=== PATIENT | male | born 1955 | race Caucasian/White ===

== ENCOUNTER 2017-02-05 08:08 | Inpatient (IN) ==
[2017-02-05 08:33] LABS: Bilirubin,Urine Negative (Negative); Blood,Urine Trace (Negative); Clarity,Urine Clear (Clear); Color,Urine Yellow (Yellow); Glucose,Urine (UA) Normal (Normal); Ketones,Urine Negative (Negative); Leukocyte Esterase,Urine Negative (Negative); Nitrite,Urine Negative (Negative); Protein,Urine Negative (Neg-Trace); Specific Gravity,Urine 1.009 (1.010-1.025); Urobilinogen,Urine Normal (Normal)
[2017-02-05 08:35] LABS: Bacteria,Urine None Seen per hpf (None-Few); Hyaline Casts,Urine None Seen per lpf (None-Few); RBC,Urine 0-3 per hpf (0-3); Squamous Epithelial Cell,Urine None Seen per lpf (None-Few); WBC,Urine 0-3 per hpf (0-3)
[2017-02-05 08:54] LABS: Amphetamine Screen,Urine Negative ng/mL (Cutoff=1000); Barbiturate Screen,Urine Negative ng/mL (Cutoff=200); Benzodiazepines Screen,Urine Negative ng/mL (Cutoff=200); Cannabinoid Screen,Urine Negative ng/mL (Cutoff = 50); Cocaine Screen,Urine Negative ng/mL (Cutoff= 300); Opiate Screen,Urine Positive ng/mL (Cutoff=300); Phencyclidine Screen,Urine Negative ng/mL (Cutoff=25)
[2017-02-05] MEDS ORDERED: 0.9 % Sodium Chloride 1,000 ML IVC ONE (09:08)
[2017-02-05 09:33] LABS: Basophils % 0.2 %; Eosinophils % 0.2 %; Hematocrit 37.9 % (37.5-50.1); Hemoglobin 12.1 g/dL (12.9-16.9); Immature Granulocytes % 0.4 % (0-4); Lymphocytes # 0.7 K/mcL (0.6-4.6); Lymphocytes % 4.4 %; Mean Corpuscular HGB Conc 31.9 g/dL (31.6-35.5); Mean Corpuscular Volume 103.3 fL (83.0-100.0); Mean Platelet Volume 12.8 fL (9.4-12.4); Monocytes # 1.1 K/mcL (0.0-1.3); Monocytes % 6.5 %; Neutrophils # 14.4 K/mcL (1.6-8.9); Platelet Count 111 K/mcL (140-400); Red Blood Count 3.67 M/mcL (4.19-5.50); Segmented Neutrophils % 88.3 %
[2017-02-05 09:45] LABS: Bilirubin,Direct 0.3 mg/dL (0.0-0.5); Bilirubin,Total 0.5 mg/dL (0.2-1.2); Calcium 9.2 mg/dL (8.6-10.8); Potassium 4.5 mEq/L (3.5-4.5)
[2017-02-05 09:46] LABS: Albumin 3.3 g/dL (3.5-5.0); Albumin/Globulin Ratio 0.8 (1.1-2.2); Bilirubin,Indirect 0.2 mg/dL (0.0-1.2); Globulin 3.9 g/dL (2.4-3.5); Total Protein 7.2 g/dL (6.0-8.3)
[2017-02-05 10:26] LABS: Prothrombin Time 22.2 Seconds (9.4-12.1)
[2017-02-05 10:29] LABS: Activated Partial Thrombo Time 37.5 Seconds (26.0-36.0)
[2017-02-05] MEDS ORDERED: Vancomycin 1,000 MG in D5% in Water 250 ML IVPB ONE (10:42)
[2017-02-05] MEDS ORDERED: D5 IVPB SCH (10:56)
[2017-02-05] MEDS ORDERED: SULFAMETHOXAZOLE IVPB SCH (10:56)
[2017-02-05] MEDS ORDERED: WATER IVPB SCH (10:56)
[2017-02-05] MEDS ORDERED: TRIMETH IVPB SCH (10:56)
--- NOTE | 2017-02-05 10:56 | Emergency Department Note ---
Disposition Clinical Impression: Cellulitis, neck Disposition: Admitted As Inpatient Condition: Good Referrals: Ethan Ivan DO [Primary Care Provider] - Forms: ED Satisfaction Letter Time of Disposition: 11:19 Altered Mental Status HPI - General Chief Complaint: ED Altered Mental Status Stated Complaint: AMS, Weakness, Lump Time Seen by Provider: 02/05/17 09:06 Source: patient Limitations: no limitations Nursing Notes Reviewed: Yes Vital Signs Reviewed: Yes - History of Present Illness HPI Narrative: 61 year old male presents to the eD with complaints of right lateral neck pain and redness that devloped in 24 hours. He states the pain from his neck now radiates into his right arm and has been nauseated with a fever of 100.1F at home. PAtinet state denies a history of MRSA and states that he feeels increased confusion now. Denies vomitting, chest pain, shortness of breath, or abdomnal pain, or uti symptoms or an neuro defecits. PAtinet states that this is afirst time occurance and the the neck is very tender to touch. - Related Data Home Medications Medication Instructions Recorded Confirmed Acetaminophen with Codeine 1 tab PO Q8H 02/05/17 02/05/17 [Acetaminophen-Cod #4 Tablet] Amitriptyline HCl [Amitriptyline 150 mg PO BID 02/05/17 02/05/17 HCl] Furosemide [Lasix] 40 mg PO DAILY 02/05/17 02/05/17 Quetiapine Fumarate [Seroquel] 50 mg PO BID 02/05/17 02/05/17 Tizanidine HCl [Tizanidine HCl] 4 mg PO TID PRN 02/05/17 02/05/17 Warfarin [Coumadin] 5 mg PO DAILY 02/05/17 02/05/17 lamoTRIgine [Lamictal] 100 mg PO DAILY 02/05/17 02/05/17 Allergies Allergy/AdvReac Type Severity Reaction Status Date / Time propoxyphene [From Darvon] Allergy Hives Verified 02/05/17 08:21 Constitutional: Reports: fever, chills, weakness. Denies: weight change Eyes: Denies: eye pain, eye discharge, vision change ENT ED: Denies: ear pain, throat pain, dental pain, hearing loss, epistaxis, congestion, dysphagia Cardiovascular: Denies: chest pain, palpitations, dyspnea on exertion, edema, syncope Respiratory: Denies: cough, dyspnea, wheezes, hemoptysis, stridor Gastrointestinal: Denies: abdominal pain, nausea, vomiting, diarrhea, constipation, hematemesis, melena, hematochezia Genitourinary: Denies: urgency, dysuria, frequency, hematuria Musculoskeletal: Reports: neck pain. Denies: back pain, arthralgia, myalgia Integumentary: Reports: rash. Denies: abrasion, lesions Neurological: Denies: headache, weakness, numbness, paresthesias, confusion, abnormal gait, vertigo Psychiatric: Denies: anxiety, depression, suicidal thoughts, homicidal thoughts , auditory hallucinations, visual hallucinations Endocrine: Denies: fatigue Hematological/Lymphatic: Denies: easy bleeding, easy bruising Allergic/Immunologic: Denies: facial swelling, urticaria Past Medical History - Past Medical History Medical history: Reports: COPD, renal disease, valvular heart disease Psychiatric history: Reports: anxiety, bipolar, depression - Social History Smoking Status: Current every day smoker Smokeless Tobacco Status: No Alcohol use: Reports: none Drug use: Reports: none Physical Exam - General Limitations: no limitations General appearance: alert, in no apparent distress - Head Head exam: atraumatic, normocephalic, normal inspection - Eye Eye exam: Present: normal appearance, PERRL, EOMI - Expanded Eye Exam Pupils: Left: reactive - ENT ENT exam: normal exam, normal oropharynx, mucous membranes moist - Expanded ENT Exam External ear exam: Present: normal external inspection Mouth exam: Present: normal external inspection Teeth exam: Present: normal inspection Throat exam: Present: normal inspection - Neck Neck exam: Present: normal inspection, full ROM, trachea midline, tenderness ( right anterior lateral neck with erythematous changes, swollen lymph node or indurated area at the corner of the righ jaw) - Chest Chest inspection: Present: normal inspection, symmetric chest wall rise - Respiratory Respiratory exam: Present: normal lung sounds bilaterally - Cardiovascular Cardiovascular exam: Present: regular rate, normal rhythm, normal heart sounds - Abdominal Exam Abdominal exam: Present: soft, Non-Tender. Absent: tenderness, distention, guarding, rebound, rigidity - Extremities Exam Extremities exam: Present: normal inspection, full ROM. Absent: tenderness, pedal edema - Expanded Upper Extremity Exam Shoulder exam: Present: normal inspection, full ROM Arm exam: Present: normal inspection, full ROM Elbow exam: Present: normal inspection, full ROM Forearm/Wrist exam: Present: normal inspection, full ROM Hand exam: Present: normal inspection, full ROM Vascular exam: Normal: capillary refill, radial pulse - Expanded Lower Extremity Exam Hip/Pelvis exam: Present: normal inspection, full ROM Upper leg exam: Present: normal inspection, full ROM Knee exam: Present: normal inspection, full ROM Lower leg exam: Present: normal inspection, full ROM Ankle exam: Present: normal inspection, full ROM Foot/toe exam: Present: normal inspection, full ROM Neurovascular/Tendon exam: Absent: motor deficit, sensory deficit, tendon deficit - Back Exam Back exam: Present: normal inspection, full ROM. Absent: tenderness - Neurological Exam Neurological exam: Present: alert, oriented X3 - Expanded Neurological Exam Patient oriented to: Present: person, place, time Coma Scale Eye Opening: Spontaneous Coma Scale Motor Response: Obeys Commands Coma Scale Verbal Response: Oriented Coma Scale Total: 15 - Psychiatric Psychiatric exam: Present: normal affect, normal mood - Skin Skin exam: Present: warm, dry, intact, normal color - Expanded Skin Exam 1 - right anterior lateral neck erythamtous changes with inudration vs swollen lymph node of right corner of jaw Course Course Narrative: we will do an altered mental status workup. My clicincal suspicion is that this is a cellutlisi of the neck. We will start IV vanco/bactrim and admit to medicine. - Reevaluation(s) Reevaluation #1: updated patient on results. and they are agrreable to admission Time: 11:19 - Consultations Consultation #1: discussed case with Dr. Heller and he accepts patinet for admission Time: 11:19 Vital Signs Temperature 99.1 F 02/05/17 08:17 Pulse Rate 82 02/05/17 08:17 Respiratory Rate 16 02/05/17 08:17 Blood Pressure 161/72 02/05/17 08:17 O2 Sat by Pulse Oximetry 96 02/05/17 08:17 Temperature 99.1 F 02/05/17 08:17 Pulse Rate 68 02/05/17 10:18 Respiratory Rate 18 02/05/17 10:18 Blood Pressure 110/91 02/05/17 10:18 O2 Sat by Pulse Oximetry 94 02/05/17 10:18 Oxygen Delivery Oxygen Delivery Room Air Altered Mental Status - Lab Data Result diagrams: 02/05/17 09:24 02/05/17 09:24 Lab Results 02/05/17 02/05/17 02/05/17 Range/Units 08:13 08:13 09:24 WBC 16.3 H (4.3-11.1) K/mcL RBC 3.67 L (4.19-5.50) M/mcL Hgb 12.1 L (12.9-16.9) g/dL Hct 37.9 (37.5-50.1) % MCV 103.3 H (83.0-100.0) fL MCH 33.0 (28.0-33.3) pg MCHC 31.9 (31.6-35.5) g/dL RDW 13.0 (11.5-14.5) % Plt Count 111 L (140-400) K/mcL MPV 12.8 H (9.4-12.4) fL Immature Gran % 0.4 (0-4) % Seg Neutrophils % 88.3 % Lymphocytes % 4.4 % Monocytes % 6.5 % Eosinophils % 0.2 % Basophils % 0.2 % Neutrophils # 14.4 H (1.6-8.9) K/mcL Lymphocytes # 0.7 (0.6-4.6) K/mcL Monocytes # 1.1 (0.0-1.3) K/mcL Eosinophils # 0.0 (0.0-0.6) K/mcL Basophils # 0.0 (0.0-0.2) K/mcL PT (9.4-12.1) Seconds INR APTT (26.0-36.0) Seconds Sodium (136-145) mEq/L Potassium (3.5-4.5) mEq/L Chloride (98-109) mEq/L Carbon Dioxide (19-29) mEq/L BUN (8-26) mg/dL Creatinine (0.72-1.25) mg/dL Est GFR ( Amer) (> 60) Est GFR (Non-Af Amer) (> 60) BUN/Creatinine Ratio (6-26) Glucose (70-99) mg/dL Calculated Osmolality (280-300) Lactic Acid (0.5-2.2) mmol/L Calcium (8.6-10.8) mg/dL Total Bilirubin (0.2-1.2) mg/dL Direct Bilirubin (0.0-0.5) mg/dL Indirect Bilirubin (0.0-1.2) mg/dL AST (5-34) Units/L ALT (0-55) Units/L Alkaline Phosphatase (38-126) Units/L Troponin I (0-0.03) ng/mL Serum Total Protein (6.0-8.3) g/dL Albumin (3.5-5.0) g/dL Globulin (2.4-3.5) g/dL Albumin/Globulin Ratio (1.1-2.2) Urine Color Yellow (Yellow) Urine Clarity Clear (Clear) Urine pH 7.0 (5.0-8.0) pH Units Ur Specific [place] 1.009 L (1.010-1.025) Urine Protein Negative (Neg-Trace) mg/dL Urine Glucose (UA) Normal (Normal) mg/dL Urine Ketones Negative (Negative) mg/dL Urine Blood Trace H (Negative) Urine Nitrite Negative (Negative) Urine Bilirubin Negative (Negative) Urine Urobilinogen Normal (Normal) mg/dL Ur Leukocyte Esterase Negative (Negative) Urine Microscopic RBC 0-3 (0-3) per hpf Urine Microscopic WBC 0-3 (0-3) per hpf Ur Squamous Epith Cells None Seen (None-Few) per lpf Urine Bacteria None Seen (None-Few) per hpf Hyaline Casts None Seen (None-Few) per lpf Ur Culture Indicated? NO (NO) Urine Opiates Screen Positive H (Fgezbm=833) ng/mL Ur Barbiturates Screen Negative (Jsguwi=559) ng/mL Ur Phencyclidine Scrn Negative (Cutoff=25) ng/mL Ur Amphetamines Screen Negative (Alsdsm=9906) ng/mL U Benzodiazepines Scrn Negative (Igizkd=000) ng/mL Urine Cocaine Screen Negative (Cutoff= 300) ng/mL U Marijuana (THC) Screen Negative (Cutoff = 50) ng/mL Ethyl Alcohol (0-10) mg/dL 09/13/17 09/13/17 09/13/17 Range/Units 09:24 09:24 10:08 WBC (4.3-11.1) K/mcL RBC (4.19-5.50) M/mcL Hgb (12.9-16.9) g/dL Hct (37.5-50.1) % MCV (83.0-100.0) fL MCH (28.0-33.3) pg MCHC (31.6-35.5) g/dL RDW (11.5-14.5) % Plt Count (140-400) K/mcL MPV (9.4-12.4) fL Immature Gran % (0-4) % Seg Neutrophils % % Lymphocytes % % Monocytes % % Eosinophils % % Basophils % % Neutrophils # (1.6-8.9) K/mcL Lymphocytes # (0.6-4.6) K/mcL Monocytes # (0.0-1.3) K/mcL Eosinophils # (0.0-0.6) K/mcL Basophils # (0.0-0.2) K/mcL PT 22.2 H (9.4-12.1) Seconds INR 2.0 APTT 37.5 H (26.0-36.0) Seconds Sodium 139 (136-145) mEq/L Potassium 4.5 (3.5-4.5) mEq/L Chloride 108 (98-109) mEq/L Carbon Dioxide 22 (19-29) mEq/L BUN 38 H (8-26) mg/dL Creatinine 3.66 H (0.72-1.25) mg/dL Est GFR ( Amer) 21 L (> 60) Est GFR (Non-Af Amer) 17 L (> 60) BUN/Creatinine Ratio 10 (6-26) Glucose 107 H (70-99) mg/dL Calculated Osmolality 298 (280-300) Lactic Acid (0.5-2.2) mmol/L Calcium 9.2 (8.6-10.8) mg/dL Total Bilirubin 0.5 (0.2-1.2) mg/dL Direct Bilirubin 0.3 (0.0-0.5) mg/dL Indirect Bilirubin 0.2 (0.0-1.2) mg/dL AST 16 (5-34) Units/L ALT 33 (0-55) Units/L Alkaline Phosphatase 173 H (38-126) Units/L Troponin I 0.04 H* (0-0.03) ng/mL Serum Total Protein 7.2 (6.0-8.3) g/dL Albumin 3.3 L (3.5-5.0) g/dL Globulin 3.9 H (2.4-3.5) g/dL Albumin/Globulin Ratio 0.8 L (1.1-2.2) Urine Color (Yellow) Urine Clarity (Clear) Urine pH (5.0-8.0) pH Units Ur Specific [place] (1.010-1.025) Urine Protein (Neg-Trace) mg/dL Urine Glucose (UA) (Normal) mg/dL Urine Ketones (Negative) mg/dL Urine Blood (Negative) Urine Nitrite (Negative) Urine Bilirubin (Negative) Urine Urobilinogen (Normal) mg/dL Ur Leukocyte Esterase (Negative) Urine Microscopic RBC (0-3) per hpf Urine Microscopic WBC (0-3) per hpf Ur Squamous Epith Cells (None-Few) per lpf Urine Bacteria (None-Few) per hpf Hyaline Casts (None-Few) per lpf Ur Culture Indicated? (NO) Urine Opiates Screen (Gagega=945) ng/mL Ur Barbiturates Screen (Dqxtrp=655) ng/mL Ur Phencyclidine Scrn (Cutoff=25) ng/mL Ur Amphetamines Screen (Kxtzlb=5252) ng/mL U Benzodiazepines Scrn (Jbjfzq=907) ng/mL Urine Cocaine Screen (Cutoff= 300) ng/mL U Marijuana (THC) Screen (Cutoff = 50) ng/mL Ethyl Alcohol (0-10) mg/dL 02/05/17 02/05/17 Range/Units 10:08 10:08 WBC (4.3-11.1) K/mcL RBC (4.19-5.50) M/mcL Hgb (12.9-16.9) g/dL Hct (37.5-50.1) % MCV (83.0-100.0) fL MCH (28.0-33.3) pg MCHC (31.6-35.5) g/dL RDW (11.5-14.5) % Plt Count (140-400) K/mcL MPV (9.4-12.4) fL Immature Gran % (0-4) % Seg Neutrophils % % Lymphocytes % % Monocytes % % Eosinophils % % Basophils % % Neutrophils # (1.6-8.9) K/mcL Lymphocytes # (0.6-4.6) K/mcL Monocytes # (0.0-1.3) K/mcL Eosinophils # (0.0-0.6) K/mcL Basophils # (0.0-0.2) K/mcL PT (9.4-12.1) Seconds INR APTT (26.0-36.0) Seconds Sodium (136-145) mEq/L Potassium (3.5-4.5) mEq/L Chloride (98-109) mEq/L Carbon Dioxide (19-29) mEq/L BUN (8-26) mg/dL Creatinine (0.72-1.25) mg/dL Est GFR ( Amer) (> 60) Est GFR (Non-Af Amer) (> 60) BUN/Creatinine Ratio (6-26) Glucose (70-99) mg/dL Calculated Osmolality (280-300) Lactic Acid 1.8 (0.5-2.2) mmol/L Calcium (8.6-10.8) mg/dL Total Bilirubin (0.2-1.2) mg/dL Direct Bilirubin (0.0-0.5) mg/dL Indirect Bilirubin (0.0-1.2) mg/dL AST (5-34) Units/L ALT (0-55) Units/L Alkaline Phosphatase (38-126) Units/L Troponin I (0-0.03) ng/mL Serum Total Protein (6.0-8.3) g/dL Albumin (3.5-5.0) g/dL Globulin (2.4-3.5) g/dL Albumin/Globulin Ratio (1.1-2.2) Urine Color (Yellow) Urine Clarity (Clear) Urine pH (5.0-8.0) pH Units Ur Specific [place] (1.010-1.025) Urine Protein (Neg-Trace) mg/dL Urine Glucose (UA) (Normal) mg/dL Urine Ketones (Negative) mg/dL Urine Blood (Negative) Urine Nitrite (Negative) Urine Bilirubin (Negative) Urine Urobilinogen (Normal) mg/dL Ur Leukocyte Esterase (Negative) Urine Microscopic RBC (0-3) per hpf Urine Microscopic WBC (0-3) per hpf Ur Squamous Epith Cells (None-Few) per lpf Urine Bacteria (None-Few) per hpf Hyaline Casts (None-Few) per lpf Ur Culture Indicated? (NO) Urine Opiates Screen (Klnitv=599) ng/mL Ur Barbiturates Screen (Uguuyy=460) ng/mL Ur Phencyclidine Scrn (Cutoff=25) ng/mL Ur Amphetamines Screen (Tgelhf=2664) ng/mL U Benzodiazepines Scrn (Auohqn=645) ng/mL Urine Cocaine Screen (Cutoff= 300) ng/mL U Marijuana (THC) Screen (Cutoff = 50) ng/mL Ethyl Alcohol < 10 (0-10) mg/dL - EKG Data EKG attestation: Yes I reviewed and interpreted this EKG. EKG results narrative: NSR with rate of 61. NO STEMI. normal intervals. no change from 08/28/07. LBBB 0828 TPA Checklist - LKW: 3-4.5 hrs Add. Warnings/Precautions Patient/family understanding: The patient/family members have been counseled and understood the risk, benefit , and alternatives of treatment.
[2017-02-05] MEDS ORDERED: 0.9 % Sodium Chloride 1,000 ML IVC SCH (13:15)
[2017-02-05] MEDS ORDERED: Naloxone 0.4 MG/ML INJ IVP PRN (13:15)
[2017-02-05] MEDS ORDERED: Albuterol 2.5 MG/3 ML NEBULIZER IH PRN (13:23)
--- NOTE | 2017-02-05 13:43 | Internal Med History&Physical ---
<Em Duran - Last Filed: 02/05/17 14:13> Date of Encounter: 02/05/17 Time of Encounter: 13:35 Assessment and Plan (1) Cellulitis, neck Current visit: Yes Status: Acute 1 the past 24 hours patient has been experiencing redness swelling enlarged lymph nodes tenderness to touch right side of neck. He has leukocytosis and low -grade temperature. Cervical spine showed no perivertebral soft tissue swelling - repeat CTs with Dr. Heller- he was given vancomycin in the ER we will initiate on Ancef 1 g every 12 hours due to CKD 2 continuous SPO2 monitoring 3 oxygen as needed 4 warm compress to right side of neck (2) COPD (chronic obstructive pulmonary disease) Current visit: No Status: Chronic 1 patient has history of COPD he is not oxygen dependent at this time. We will continue with bronchodilators and oxygen as needed Qualifiers: COPD type: unspecified COPD Qualified Code(s): J44.9 - Chronic obstructive pulmonary disease, unspecified (3) Depression with anxiety Current visit: No Status: Chronic 1 presently stable we will continue his home medications (4) Mechanical heart valve present Current visit: No Status: Chronic 1 we will continue with Coumadin INR presently is at 2 target is 2.5-3-monitor INR pharmacy to dose (5) CKD (chronic kidney disease) stage 4, GFR 15-29 ml/min Current visit: Yes Status: Acute (6) DVT prophylaxis Current visit: Yes Status: Acute 1 he is on Coumadin which we will continue, CYNTHIA covarrubias (7) Tobacco use Current visit: Yes Status: Acute 1 patient smokes a pack a day we have encouraged him to stop smoking. We will give him nicotine patch Internal Medicine - H&P: HPI Chief complaint: SOB/confusion Admitted From: Emergency Dept Plans for Post Hospital Care: Home History of present illness: Mr. Kaplan is a 61 year old male past medical history of COPD CK D4 depression /anxiety mitral valve replacement with mechanical valve 2007. Patient began to experience right lateral neck pain and redness for the past 24 hours. His neck is tender to touch and pain radiates down to his right shoulder. He also complains of right ear pain he has had some nausea with a low-grade fever of 100.1. He denies any difficulty breathing he does say it hurts to swallow however he is able to maintain his airway and swallow. Within the past 24 hours he is experiencing increased confusion. He denies any vomiting chest pain abdominal pain shortness of breath abdominal pain. He denies any past history of MRSA, injury or lesions to neck. He presented to the ER with the above complaints. Upon presentation lab work did reveal WBC 16.3 he was afebrile creatinine was 3.66 troponin 0.04 INR was 2. CXR with cardiomegaly and some vascular congestion. CT of head was negative for any acute intracranial abnormalities. CT cervical spine no fractures, no prevertebral soft tissue swelling. He was given IV fluids as well as vancomycin. He has been admitted for further workup evaluation. Presently patient is alert and appropriate following simple commands. He does have redness right lateral neck extending across into trachea and down around scapula. Submandibular lymph nodes are swollen and tender to touch. His whole right side of neck is tender to touch extending into his right shoulder. His trachea is midline he is able to swallow without difficulty and maintaining his airway. No stridor noted. His lung sounds are diminished with a few scattered wheezes. Heart sounds are regular S1-S2 Past Med Surg Social Fam HX - Past Medical History Medical history: COPD, renal disease, valvular heart disease Psychiatric history: anxiety, bipolar, depression - Social History Smoking Status: Current every day smoker Smokeless Tobacco Status: No Alcohol use: none Drug use: none - Family History Father Hx Family Cardiac Disorders: Yes (Heart disease) Internal Medicine - H&P: Meds Acetaminophen with Codeine [Acetaminophen-Cod #4 Tablet] 1 tab PO Q8H 02/05/17 [ History] Amitriptyline HCl [Amitriptyline HCl] 150 mg PO BID 02/05/17 [History] Furosemide [Lasix] 40 mg PO DAILY 02/05/17 [History] Quetiapine Fumarate [Seroquel] 50 mg PO BID 02/05/17 [History] Tizanidine HCl [Tizanidine HCl] 4 mg PO TID PRN 02/05/17 [History] Warfarin [Coumadin] 5 mg PO DAILY 02/05/17 [History] lamoTRIgine [Lamictal] 100 mg PO DAILY 02/05/17 [History] 3 Allergy/AdvReac Type Severity Reaction Status Date / Time propoxyphene [From Darvon] Allergy Hives Verified 02/05/17 08:21 All Systems PM: A 10-system review of systems was performed and is negative for pertinent findings except as documented above in the HPI. - Constitutional Constitutional: no chills, no fever(s), no night sweats - EENT Eyes: no change in vision, no discharge, no pain, no photophobia Nose, mouth and throat: neck mass, neck pain, no dysphagia, no nasal discharge, no sore throat - Cardiovascular Cardiovascular ROS IM: no chest pain, no diaphoresis, no dyspnea, no lightheadedness, no palpitations, no syncope - Respiratory Respiratory: no cough, no dyspnea, no wheezing, no excessive phlegm production - Gastrointestinal Gastrointestinal: no abdominal pain, no diarrhea, no hematemesis, no hematochezia, no melena, no nausea, no vomiting - Musculoskeletal Musculoskeletal ROS IM: no numbness, no tingling - Integumentary Integumentary IM: erythema - Neurological Neurological ROS: no confusion, no convulsions, no focal weakness, no numbness, no tingling, no tremor(s) - Hematologic/Lymphatic Hematologic/Lymphatic: no easy bruising - Constitutional Vitals: Temp Pulse Resp BP Pulse Ox 99.1 F 68 18 110/91 94 02/05/17 08:17 02/05/17 10:18 02/05/17 10:18 02/05/17 10:18 02/05/17 10:18 General appearance: Present: A&O X 3, answers questions appropriately - Head Head exam: Present: atraumatic, normocephalic - Eye Eye exam: Present: PERRL, conjuntiva pink, sclera anicteric Pupils: Present: PERRL - Neck Neck exam general surgery: Present: supple, trachea midline. Absent: lymphadenopathy - Respiratory Respiratory exam: Present: CTAB. Absent: accessory muscle use, rales, rhonchi, wheezes - Cardiovascular Cardiovascular exam: Present: RRR, +S1, +S2. Absent: diastolic murmur, gallop, rubs, systolic murmur - GI/Abdominal GI/Abdominal exam: Present: normal bowel sounds, soft, no peritoneal signs. Absent: distended, tenderness - Extremities Exam Extremities exam: Present: pedal edema, warm, radial pulses palpable and symmetrical. Absent: calf tenderness, cyanotic - Neurological Exam Neurological exam: Present: CN II-XII intact, oriented X3, no focal deficits. Absent: pronater drift, facial droop, speech deficit - Skin Skin exam: Present: dry, intact Internal Med - H&P Results - Labs CBC & Chem 7: 02/05/17 09:24 02/05/17 09:24 - Diagnostic Studies Other Images Additional comments: Chest X-Ray 02/05/17 09:08 IMPRESSION: Cardiomegaly with vascular congestion and mild interstitial edema pattern. Bibasilar atelectasis. D/ / 02/05/2017 09:48:52 Doe Delgado MD / earnold Interpreting Provider: Doe Delgado MD Cervical Spine CT 02/05/17 09:09 IMPRESSION: No acute abnormality of the cervical spine. D/ / Salima Carlin MD / Salima Carlin MD Interpreting Provider: Salima Carlin MD Head CT 02/05/17 09:09 IMPRESSION: 1. No acute intracranial abnormality. 2. Minimal diffuse atrophy and minimal chronic small vessel ischemic changes. D/ / Armando Gerber MD / Armando Gerber MD Interpreting Provider: Armando Gerber MD <Francisco Heller - Last Filed: 02/05/17 16:09> Date of Encounter: 02/05/17 Internal Medicine - H&P: HPI History of present illness: Mr. Kaplan is a 61 year old male All Systems PM: A 10-system review of systems was performed and is negative for pertinent findings except as documented above in the HPI. - Constitutional Vitals: Temp Pulse Resp BP Pulse Ox 100.3 F H 65 17 153/74 92 02/05/17 15:06 02/05/17 15:06 02/05/17 15:47 02/05/17 15:06 02/05/17 15:47 Internal Med - H&P Results - Labs CBC & Chem 7: 02/05/17 09:24 02/05/17 09:24 - Attending Attestation I personally interviwed and examined this pt. I reviewed all labs and studies and discussed the pt with EXECUTIVE DIRECTOR OF NURSING /goyo at the bedside. Pt with cellulitis of neck but no deep infection. Ear exam does not suggest otitis. No dental lesions noted. Agree with Ancef as I suspect this to be strep. Pt also reeceived vancomycin. Monitor closley. INR at goal. Pt on coumadin for mechanical heart valve. All else as above.
[2017-02-05] MEDS ORDERED: *HR* HYDROmorphone (PF) 1 MG/ML SYRINGE IVP PRN (13:45)
[2017-02-05] MEDS ORDERED: Furosemide 40 MG/4 ML VIAL IVP ONE (15:15)
[2017-02-05] MEDS ORDERED: Albuterol 2.5 MG/3 ML NEBULIZER IH STA (15:16)
[2017-02-05] MEDS: ceFAZolin 1,000 MG in D5% in Water (Mini-Bag+) 100 ML IVPB SCH ×2 (15:17→16:43)
[2017-02-05] MEDS: Nicotine 14 MG PATCH.TD24 TD SCH (15:24)
[2017-02-05] MEDS: Ipratropium/Albuterol Neb 3 ML IH SCH ×2 (15:45→22:27)
--- NOTE | 2017-02-05 16:16 | Electrocardiograph Report ---
[place] [id number] Test Date: 2017-02-05 Pat Name: Ramesh Kaplan Department: 102 Room: 2A42 Gender: M Special Procedures Tech: [facility] : 1955 Requested By: Logan Worthy Order Number: [id number] Reading MD: Miguel Castle MD Measurements Intervals [place] Rate: 61 P: 50 UT: 212 QRS: -22 QRSD: 174 T: 246 QT: 552 QTc: 555 Interpretive Statements PROBABLE SINUS RHYTHM WITH SINUS ARRHYTHMIA WITH FIRST DEGREE AV BLOCK LEFT BUNDLE BRANCH BLOCK BASELINE ARTIFACT, REPEAT EKG Electronically Signed On 02-05-2017 16:14:35 EDT by Miguel Castle MD
[2017-02-05] MEDS: *HR* HYDROcodone/Acet 5/325 mg TABLET PO PRN (16:44)
[2017-02-05] MEDS ORDERED: *HR* Warfarin 5 MG TABLET PO SCH (18:00)
[2017-02-05] MEDS ORDERED: Warfarin perPT PO PRN (18:00)
[2017-02-06] MEDS: Ipratropium/Albuterol Neb 3 ML IH SCH ×4 (04:10→22:38)
[2017-02-06] MEDS: ceFAZolin 1,000 MG in D5% in Water (Mini-Bag+) 100 ML IVPB SCH (05:04)
[2017-02-06 06:24] LABS: Basophils % 0.1 %; Eosinophils % 0.2 %; Hematocrit 33.8 % (37.5-50.1); Immature Granulocytes % 0.7 % (0-4); Immature Platelets 11.8 % (1.1-6.1); Lymphocytes # 0.7 K/mcL (0.6-4.6); Lymphocytes % 3.9 %; Mean Corpuscular HGB Conc 32.5 g/dL (31.6-35.5); Mean Corpuscular Hemoglobin 32.6 pg (28.0-33.3); Mean Corpuscular Volume 100.3 fL (83.0-100.0); Mean Platelet Volume 13.1 fL (9.4-12.4); Monocytes # 1.2 K/mcL (0.0-1.3); Monocytes % 7.2 %; Neutrophils # 14.9 K/mcL (1.6-8.9); Red Blood Count 3.37 M/mcL (4.19-5.50); Red Cell Distribution Width 13.1 % (11.5-14.5); Segmented Neutrophils % 87.9 %
[2017-02-06 06:33] LABS: Calcium 9.2 mg/dL (8.6-10.8); Potassium 4.2 mEq/L (3.5-4.5)
[2017-02-06 06:50] LABS: Platelet Count 96 K/mcL (140-400)
[2017-02-06 07:21] LABS: Platelet Estimate Slight Decrease (Normal)
[2017-02-06] MEDS: lamoTRIgine 100 MG TABLET PO SCH (07:47)
[2017-02-06] MEDS: *HR* HYDROcodone/Acet 5/325 mg TABLET PO PRN (07:47)
[2017-02-06] MEDS: Furosemide 40 MG TABLET PO SCH (07:47)
[2017-02-06] MEDS: Nicotine 14 MG PATCH.TD24 TD SCH (07:50)
[2017-02-06] MEDS ORDERED: *HR* Warfarin 5 MG TABLET PO SCH (09:00)
--- NOTE | 2017-02-06 12:18 | Internal Med Progress Note ---
Date of Encounter: 02/06/17 Time of Encounter: 12:16 - Assessment and plan (1) Sepsis Current Visit: Yes Status: Acute Assessment and plan: Pt does meet sepsis criteria with T max 100.3, elevated WBC and Source of inf as Cellulites of neck improving cont empirical abx Qualifiers: Qualified Code(s): A41.9 - Sepsis, unspecified organism (2) Cellulitis, neck Current Visit: Yes Status: Acute Assessment and plan: Unclear etiology seems to be improving He did c/o ear pain prior to this Will ask ENT for further eval Mean while changed his abx to Unasyn for better oral pathogen coverage too renally doses abx started him on IV fluids cont close monitoring (3) Acute kidney injury superimposed on CKD Current Visit: Yes Status: Acute Assessment and plan: by looking at his BUN / Cr , he might have underline CKD, but not sure about staging, no previous labs to compare.. Also he might have some STEVE superimposed on CKD will start him on IV fluids Avoid nephrotoxic meds (4) Mechanical heart valve present Current Visit: No Status: Chronic Assessment and plan: Need to keep INR between 2.5-3.5 Waiting on today's INR if it is still low will give 1 dose Lovenox and change coumadin dose Pharmacy following for coumaidn dosing (5) COPD (chronic obstructive pulmonary disease) Current Visit: No Status: Chronic Assessment and plan: stable not in exacerbation resumed home regimen Qualifiers: COPD type: unspecified COPD Qualified Code(s): J44.9 - Chronic obstructive pulmonary disease, unspecified (6) Depression with anxiety Current Visit: No Status: Chronic Assessment and plan: resumed home meds (7) DVT prophylaxis Current Visit: Yes Status: Acute Assessment and plan: on Coumadin (8) Tobacco use Current Visit: Yes Status: Acute Assessment and plan: counseled to quit on nicotine patch - Subjective Interval history: Mr. Kaplan is a 61 year old male past medical history of COPD CK D4 depression /anxiety mitral valve replacement with mechanical valve 2007. Patient began to experience right lateral neck pain and redness for the past 24 hours. His neck is tender to touch and pain radiates down to his right shoulder. He also complains of right ear pain he has had some nausea with a low-grade fever of 100.1. He denies any difficulty breathing he does say it hurts to swallow however he is able to maintain his airway and swallow. Pt is more alert, awake and oriented x 3. Denied any CP / SOB. He still c/o Rt neck pain and swelling, still has some difficulty to swallow. However overall feels better today. No more fever spikes since last night - Constitutional Vitals: Temp Pulse Resp BP Pulse Ox 98.6 F 83 15 113/68 94 02/06/17 10:55 02/06/17 10:55 02/06/17 10:55 02/06/17 10:55 02/06/17 10:55 General appearance: Present: A&O X 3, answers questions appropriately - Head Head exam: Present: atraumatic, normal inspection - ENT ENT exam: Present: mucous membranes dry - Neck Additional comments: mild erythema over Rt side of neck.. No lymphadenpathy noticed. Erythema extending from TMJ to just above sternum anteriorly. - Respiratory Respiratory exam: Present: decreased breath sounds, wheezes. Absent: rales, respiratory distress, rhonchi, stridor - Cardiovascular Cardiovascular exam: Present: RRR, +S1, +S2. Absent: gallop, rubs - GI/Abdominal GI/Abdominal exam: Present: normal bowel sounds, soft. Absent: rebound, rigid, tenderness - Extremities Exam Extremities exam: Absent: calf tenderness, pedal edema, tenderness - Neurological Exam Neurological exam: Present: alert, oriented X3 - Psychiatric Psychiatric exam: Present: normal affect, normal mood Internal Medicine: Result - Labs CBC & Chem 7: 02/06/17 05:53 02/06/17 05:53 Labs: Short CBC 02/06/17 Range/Units 05:53 WBC 16.9 H (4.3-11.1) K/mcL Hgb 11.0 L (12.9-16.9) g/dL Hct 33.8 L (37.5-50.1) % Plt Count 96 L (140-400) K/mcL Neutrophils # 14.9 H (1.6-8.9) K/mcL BMP 02/06/17 05:53 Sodium 140 Potassium 4.2 Chloride 109 Carbon Dioxide 21 BUN 38 H Creatinine 3.56 H Glucose 120 H Calcium 9.2 Cardiac Enzymes 02/05/17 02/05/17 Range/Units 15:57 21:53 Troponin I 0.04 H* 0.03 (0-0.03) ng/mL - ABG Interpretation ABG results: PT/INR, D-dimer PT 22.2 Seconds (9.4-12.1) H 02/05/17 10:08 - VTE Documentation of Mechanical Device: Graduated compression elastic hosiery Consult Discharge Plan - Plan Referrals: Ethan Ivan DO [Primary Care Provider] -
[2017-02-06 12:21] LABS: INR 2.9; Prothrombin Time 31.5 Seconds (9.4-12.1)
[2017-02-06] MEDS: 0.9 % Sodium Chloride 1,000 ML IVC SCH (13:06)
[2017-02-06] MEDS: Ampicillin/Sulbactam 1,500 MG in 0.9 % Sodium Chloride Mini Bag 100 ML IVPB SCH (14:54)
[2017-02-06] MEDS ORDERED: *HR* Warfarin 2.5 MG TABLET PO ONE (18:00)
[2017-02-07] MEDS: 0.9 % Sodium Chloride 1,000 ML IVC SCH ×2 (00:12→09:08)
[2017-02-07] MEDS: Ampicillin/Sulbactam 1,500 MG in 0.9 % Sodium Chloride Mini Bag 100 ML IVPB SCH ×2 (00:12→11:37)
[2017-02-07] MEDS: *HR* HYDROcodone/Acet 5/325 mg TABLET PO PRN ×3 (00:43→17:17)
[2017-02-07 05:56] LABS: Basophils % 0.2 %; Eosinophils # 0.2 K/mcL (0.0-0.6); Eosinophils % 1.5 %; Hematocrit 31.1 % (37.5-50.1); Hemoglobin 9.9 g/dL (12.9-16.9); Immature Granulocytes % 0.8 % (0-4); Lymphocytes # 0.7 K/mcL (0.6-4.6); Lymphocytes % 6.9 %; Mean Corpuscular HGB Conc 31.8 g/dL (31.6-35.5); Mean Corpuscular Hemoglobin 32.1 pg (28.0-33.3); Mean Platelet Volume 12.8 fL (9.4-12.4); Monocytes # 0.6 K/mcL (0.0-1.3); Monocytes % 5.8 %; Neutrophils # 8.5 K/mcL (1.6-8.9); Platelet Count 105 K/mcL (140-400); Red Blood Count 3.08 M/mcL (4.19-5.50); Red Cell Distribution Width 13.1 % (11.5-14.5); Segmented Neutrophils % 84.8 %
[2017-02-07 05:57] LABS: INR 2.9; Prothrombin Time 32.3 Seconds (9.4-12.1)
[2017-02-07] MEDS: Ipratropium/Albuterol Neb 3 ML IH SCH ×4 (05:59→22:56)
[2017-02-07 06:11] LABS: Magnesium 2.1 mg/dL (1.6-2.6); Potassium 4.2 mEq/L (3.5-4.5)
[2017-02-07] MEDS: Furosemide 40 MG TABLET PO SCH (08:00)
[2017-02-07] MEDS: lamoTRIgine 100 MG TABLET PO SCH (08:00)
[2017-02-07] MEDS: Nicotine 14 MG PATCH.TD24 TD SCH (08:00)
--- NOTE | 2017-02-07 13:33 | Internal Med Progress Note ---
Date of Encounter: 02/07/17 Time of Encounter: 13:31 - Assessment and plan (1) Sepsis Current Visit: Yes Status: Acute Assessment and plan: Pt did meet sepsis criteria with T max 100.3, elevated WBC and Source of inf as Cellulites of neck improving WBC started trending down to normal cont empirical abx Qualifiers: Qualified Code(s): A41.9 - Sepsis, unspecified organism (2) Cellulitis, neck Current Visit: Yes Status: Acute Assessment and plan: Unclear etiology Mostly coming from his Rt ear seems to be improving He did c/o ear pain prior to this Will ask ENT for further eval Cont abx Unasyn for better oral pathogen coverage renally dosed abx d/c IVF Tolerating PO intake well cont close monitoring (3) Acute kidney injury superimposed on CKD Current Visit: Yes Status: Acute Assessment and plan: by looking at his BUN / Cr , he might have underline CKD, but not sure about staging, no previous labs to compare.. Also he might have some STEVE superimposed on CKD No change in Cr with IV fluids.. seems to be this his baseline Cr cont close monitoring Held Lasix Avoid nephrotoxic meds (4) Mechanical heart valve present Current Visit: No Status: Chronic Assessment and plan: Need to keep INR between 2.5-3.5 Pharmacy following for coumaidn dosing (5) COPD (chronic obstructive pulmonary disease) Current Visit: No Status: Chronic Assessment and plan: stable not in exacerbation resumed home regimen Qualifiers: COPD type: unspecified COPD Qualified Code(s): J44.9 - Chronic obstructive pulmonary disease, unspecified (6) Depression with anxiety Current Visit: No Status: Chronic Assessment and plan: resumed home meds (7) DVT prophylaxis Current Visit: Yes Status: Acute Assessment and plan: on Coumadin (8) Tobacco use Current Visit: Yes Status: Acute Assessment and plan: counseled to quit on nicotine patch - Subjective Interval history: Mr. Kaplan is a 61 year old male past medical history of COPD CK D4 depression /anxiety mitral valve replacement with mechanical valve 2007. Patient began to experience right lateral neck pain and redness for the past 24 hours. His neck is tender to touch and pain radiates down to his right shoulder. He also complains of right ear pain he has had some nausea with a low-grade fever of 100.1. He denies any difficulty breathing he does say it hurts to swallow however he is able to maintain his airway and swallow. Pt is more alert, awake and oriented x 3. Denied any CP / SOB. His Rt neck pain and swelling are better today and able to tolerate PO intake ok. No more fever spikes since last 36 hrs..Pt denied any suicidal ideation / homicidal ideation - Constitutional Vitals: Temp Pulse Resp BP Pulse Ox 98.5 F 60 15 147/73 98 02/07/17 11:19 02/07/17 11:19 02/07/17 11:19 02/07/17 11:19 02/07/17 11:19 General appearance: Present: A&O X 3, answers questions appropriately - Head Head exam: Present: atraumatic, normal inspection - Neck Additional comments: improving erythema over Rt side of neck.. No lymphadenpathy noticed. Erythema extending from TMJ to just above sternum anteriorly. - Respiratory Respiratory exam: Present: decreased breath sounds. Absent: rales, respiratory distress, rhonchi, wheezes - Cardiovascular Cardiovascular exam: Present: RRR, +S1, +S2, systolic murmur. Absent: diastolic murmur, gallop, rubs - GI/Abdominal GI/Abdominal exam: Present: normal bowel sounds, soft, no peritoneal signs. Absent: distended, tenderness - Neurological Exam Neurological exam: Present: alert, oriented X3 - Psychiatric Psychiatric exam: Present: normal affect, normal mood. Absent: homicidal ideation, suicidal ideation Internal Medicine: Result - Labs CBC & Chem 7: 02/07/17 05:38 02/07/17 05:38 Labs: Short CBC 02/07/17 Range/Units 05:38 WBC 10.0 (4.3-11.1) K/mcL Hgb 9.9 L (12.9-16.9) g/dL Hct 31.1 L (37.5-50.1) % Plt Count 105 L (140-400) K/mcL Neutrophils # 8.5 (1.6-8.9) K/mcL BMP 02/07/17 05:38 Sodium 141 Potassium 4.2 Chloride 112 H Carbon Dioxide 19 BUN 44 H Creatinine 3.65 H Glucose 94 Calcium 9.0 - ABG Interpretation ABG results: PT/INR, D-dimer PT 32.3 Seconds (9.4-12.1) H 02/07/17 05:38 - VTE Documentation of Mechanical Device: Intermittent pneumatic compression device Consult Discharge Plan - Plan Referrals: Ethan Ivan DO [Primary Care Provider] -
[2017-02-07] MEDS ORDERED: *HR* Warfarin 5 MG TABLET PO ONE (18:00)
--- NOTE | 2017-02-07 20:31 | ENT - Consult Note ---
Date of Encounter: 02/07/17 Time of Encounter: 08:15 Assessment and Plan (1) Acute parotitis Current Visit: Yes Status: Acute White male with obvious acute parotitis culture pending on appropriate antibiotics and improving recommend heat and massage sialagogues he should follow-up in the ENT clinic if this does not entirely resolve over the next several days patient also advised to drink a lot of fluids particularly water please note patient is on amitriptyline and furosemide can both cause dryness and may be contributory in his parotitis History of Present Illness History of present illness: 61-year-old white male denies dehydration 2 days ago developed some discomfort in the right ear parotid region denies bad taste or drainage but he does notice that when he eats he gets more pain in the right area consistent with parotitis patient currently on penicillin should be appropriate for managing his infection complains of pain in the right ear but no hearing problems Past Med Surg Social Fam HX - Past Medical History Medical history: COPD, renal disease, valvular heart disease Psychiatric history: anxiety, bipolar, depression - Social History Smoking Status: Current every day smoker Smokeless Tobacco Status: No Alcohol use: none Drug use: none - Family History Father History Unknown: Yes Hx Family Cardiac Disorders: Yes (Heart disease) Medications and Allergies Acetaminophen with Codeine [Acetaminophen-Cod #4 Tablet] 1 tab PO Q8H 02/05/17 [ History] Amitriptyline HCl [Amitriptyline HCl] 150 mg PO BID 02/05/17 [History] Furosemide [Lasix] 40 mg PO DAILY 02/05/17 [History] Quetiapine Fumarate [Seroquel] 50 mg PO BID 02/05/17 [History] Tizanidine HCl [Tizanidine HCl] 4 mg PO TID PRN 02/05/17 [History] Warfarin [Coumadin] 5 mg PO DAILY 02/05/17 [History] lamoTRIgine [Lamictal] 100 mg PO DAILY 02/05/17 [History] 3 Allergy/AdvReac Type Severity Reaction Status Date / Time propoxyphene [From Darvon] Allergy Hives Verified 02/05/17 08:21 ENT Exam Initial Vital Signs Temp Pulse Resp BP Pulse Ox 99.1 F 82 16 161/72 96 02/05/17 08:17 02/05/17 08:17 02/05/17 08:02/05/17 08:17 02/05/17 08:17 - General physical appearance well developed, well nourished, no distress, no pain - Eyes PERRL, normal ocular movement - ENT normal pinna, normal nares, normal mucosa, dentures, dry mucosa, Other (Patient has some swelling in the right parotid region and tenderness on milking the gland pus was extruded from the duct this was cultured) - Neck trachea midline, no lymphadectomy, other (These note the parotid gland is enlarged and the right side and tender to pressure but the patient has had a lot of improvement over the last several days) - Respiratory normal expansion, normal respiratory effort, clear to percussion Exam Initial Vital Signs Temp Pulse Resp BP Pulse Ox 99.1 F 82 16 161/72 96 02/05/17 08:17 02/05/17 08:17 02/05/17 08:17 02/05/17 08:17 02/05/17 08:17 Results - Labs 02/07/17 05:38 02/07/17 05:38 Abnormal lab results RBC 3.08 M/mcL (4.19-5.50) L 02/07/17 05:38 Hgb 9.9 g/dL (12.9-16.9) L 02/07/17 05:38 Hct 31.1 % (37.5-50.1) L 02/07/17 05:38 MCV 101.0 fL (83.0-100.0) H 02/07/17 05:38 Plt Count 105 K/mcL (140-400) L 02/07/17 05:38 MPV 12.8 fL (9.4-12.4) H 02/07/17 05:38 Platelet Estimate Slight Decrease (Normal) L 02/06/17 05:53 Immature Plt Fraction 11.8 % (1.1-6.1) H 02/06/17 05:53 PT 32.3 Seconds (9.4-12.1) H 02/07/17 05:38 APTT 37.5 Seconds (26.0-36.0) H 02/05/17 10:08 Chloride 112 mEq/L (98-109) H 02/07/17 05:38 BUN 44 mg/dL (8-26) H 02/07/17 05:38 Creatinine 3.65 mg/dL (0.72-1.25) H 02/07/17 05:38 Est GFR ( Amer) 21 (> 60) L 02/07/17 05:38 Est GFR (Non-Af Amer) 17 (> 60) L 02/07/17 05:38 Calculated Osmolality 303 (280-300) H 02/07/17 05:38 Alkaline Phosphatase 173 Units/L (38-126) H 02/05/17 09:24 Albumin 3.3 g/dL (3.5-5.0) L 02/05/17 09:24 Globulin 3.9 g/dL (2.4-3.5) H 02/05/17 09:24 Albumin/Globulin Ratio 0.8 (1.1-2.2) L 02/05/17 09:24 Ur Specific [place] 1.009 (1.010-1.025) L 02/05/17 08:13 Urine Blood Trace (Negative) H 02/05/17 08:13 Urine Opiates Screen Positive ng/mL (Irsnnk=628) H 02/05/17 08:13 Diabetes panel 02/07/17 Range/Units 05:38 Sodium 141 (136-145) mEq/L Potassium 4.2 (3.5-4.5) mEq/L Chloride 112 H (98-109) mEq/L Carbon Dioxide 19 (19-29) mEq/L BUN 44 H (8-26) mg/dL Creatinine 3.65 H (0.72-1.25) mg/dL Glucose 94 (70-99) mg/dL Calcium 9.0 (8.6-10.8) mg/dL Calcium panel 02/07/17 Range/Units 05:38 Calcium 9.0 (8.6-10.8) mg/dL Pituitary panel 02/07/17 Range/Units 05:38 Sodium 141 (136-145) mEq/L Potassium 4.2 (3.5-4.5) mEq/L Chloride 112 H (98-109) mEq/L Carbon Dioxide 19 (19-29) mEq/L BUN 44 H (8-26) mg/dL Creatinine 3.65 H (0.72-1.25) mg/dL Glucose 94 (70-99) mg/dL Calcium 9.0 (8.6-10.8) mg/dL Adrenal panel 02/07/17 Range/Units 05:38 Sodium 141 (136-145) mEq/L Potassium 4.2 (3.5-4.5) mEq/L Chloride 112 H (98-109) mEq/L Carbon Dioxide 19 (19-29) mEq/L BUN 44 H (8-26) mg/dL Creatinine 3.65 H (0.72-1.25) mg/dL Glucose 94 (70-99) mg/dL Calcium 9.0 (8.6-10.8) mg/dL All other labs normal. Consult Discharge Plan - Plan Referrals: Ethan Ivan DO [Primary Care Provider] -
[2017-02-08] MEDS: Ampicillin/Sulbactam 1,500 MG in 0.9 % Sodium Chloride Mini Bag 100 ML IVPB SCH ×2 (01:58→13:27)
[2017-02-08] MEDS: *HR* HYDROcodone/Acet 5/325 mg TABLET PO PRN ×2 (04:27→14:28)
[2017-02-08] MEDS: Ipratropium/Albuterol Neb 3 ML IH SCH ×4 (04:29→22:27)
[2017-02-08 05:40] LABS: Basophils % 0.3 %; Eosinophils # 0.2 K/mcL (0.0-0.6); Eosinophils % 2.9 %; Hematocrit 31.5 % (37.5-50.1); Hemoglobin 9.8 g/dL (12.9-16.9); Immature Granulocytes % 0.6 % (0-4); Lymphocytes # 0.7 K/mcL (0.6-4.6); Lymphocytes % 9.1 %; Mean Corpuscular HGB Conc 31.1 g/dL (31.6-35.5); Mean Corpuscular Hemoglobin 31.5 pg (28.0-33.3); Mean Corpuscular Volume 101.3 fL (83.0-100.0); Mean Platelet Volume 12.2 fL (9.4-12.4); Monocytes # 0.5 K/mcL (0.0-1.3); Monocytes % 6.6 %; Neutrophils # 5.8 K/mcL (1.6-8.9); Platelet Count 117 K/mcL (140-400); Red Blood Count 3.11 M/mcL (4.19-5.50); Red Cell Distribution Width 13.2 % (11.5-14.5); Segmented Neutrophils % 80.5 %
[2017-02-08 05:48] LABS: INR 3.5; Prothrombin Time 38.9 Seconds (9.4-12.1)
[2017-02-08 06:00] LABS: Calcium 9.1 mg/dL (8.6-10.8); Potassium 3.9 mEq/L (3.5-4.5)
[2017-02-08] MEDS: Nicotine 14 MG PATCH.TD24 TD SCH (09:02)
[2017-02-08] MEDS: lamoTRIgine 100 MG TABLET PO SCH (09:02)
--- NOTE | 2017-02-08 10:22 | Internal Med Progress Note ---
<Silver Justice - Last Filed: 02/08/17 17:09> Date of Encounter: 02/08/17 Time of Encounter: 09:00 - Assessment and plan (1) Sepsis Current Visit: Yes Status: Acute Assessment and plan: Pt did meet sepsis criteria with T max 100.3, elevated WBC and Source of inf as Cellulites of neck - Leukocytosis is resolving, patient is afebrile and proctitis cultures are collected - Patient improving appropriately -Continue ampicillin sulbactam IV Qualifiers: Qualified Code(s): A41.9 - Sepsis, unspecified organism (2) Acute parotitis Current Visit: Yes Status: Acute Assessment and plan: Patient is seen by shift boss and found to have acute prostatitis. Patient is continued to massage his parotid gland with expression of a grayish discharge for which cultures were collected by ENT and pending results. - Symptoms improving - Patient advised to stay hydrated and to avoid dehydration as this can exacerbate symptoms - Furosemide held (3) Acute kidney injury superimposed on CKD Current Visit: Yes Status: Acute Assessment and plan: History of chronic kidney disease stage IV/V, patient did come in with the setting of sepsis with no previous document a creatinine and GFR. Unsure if there is a superimposed acute kidney injury. Since receiving IV rehydration there has not been a significant change in his GFR or creatinine. - Review of outpatient encounters he is scheduled to see Dr. Padron with nephrology on 02/20/2017 - Monitor renal function, avoid nephrotoxic medications including NSAIDs and renally dose antibiotics (4) Tobacco use Current Visit: Yes Status: Acute Assessment and plan: counseled to quit on nicotine patch (5) COPD (chronic obstructive pulmonary disease) Current Visit: No Status: Chronic Assessment and plan: Patient states he has a history of emphysema/COPD and continues to smoke daily. Symptoms stable Plan: -DuoNeb scheduled - Albuterol nebulizer every 2 hours when necessary - NicoDerm transdermal patch 14 mg daily Qualifiers: COPD type: unspecified COPD Qualified Code(s): J44.9 - Chronic obstructive pulmonary disease, unspecified (6) Depression with anxiety Current Visit: No Status: Chronic Assessment and plan: Symptoms stable, continue home medications (7) Mechanical heart valve present Current Visit: No Status: Chronic Assessment and plan: Known mechanical heart valve placed in 2007. Need to keep INR between 2.5-3.5, current INR is therapeutic at 3.5 Pharmacy following for coumaidn dosing (8) Macrocytic anemia Current Visit: Yes Status: Acute Assessment and plan: Patient is a hemoglobin of 9.8 which is down to 12.1 after rehydration likely dilutional MCV of 103.3. Suspect chronic macrocytic anemia in the setting of chronic kidney disease stage IV/V. - Transfuse PRBCs if hemoglobin drops below 8.0 (9) DVT prophylaxis Current Visit: Yes Status: Acute Assessment and plan: on Coumadin - Subjective Interval history: Mr. Petty 61-year-old male says that his jaws feeling much better after he saw the ENT last evening. He said that he has been massaging his jaw all evening and expressing pus through his mouth. He feels that the cellulitis has improved and that his pain is improved. He said that he was told to suck on lemon's to help relieve this symptom and stay hydrated. He denies any other concerns at this time. He denies any fevers, chills or sweating. - Constitutional Vitals: Temp Pulse Resp BP Pulse Ox 97.9 F 59 18 109/55 93 02/08/17 08:01 02/08/17 08:01 02/08/17 10:12 02/08/17 08:01 02/08/17 10:12 General appearance: Present: A&O X 3, answers questions appropriately Exam: General: Patient alert, awake, oriented 3, interactive, in no acute distress HEENT: Normocephalic, atraumatic, mild erythema over the right jaw, nontender to palpation pupils equal reactive to light, nasal cavity patent and open septum median position, oral mucosa moist, no signs of abscess in the oral cavity, uvula midline, neck supple trachea midline no palpable lymphadenopathy, no thyromegaly. Chest: Symmetric bilateral correlating with respiratory effort, effort nonlabored. Cardiac: Regular rate and rhythm, positive S1 and S2. no bruits appreciated bilateral carotids, Radial pulses 2+ bilateral, posterior tibial and dorsal pedal pulses 2+ bilateral. Respiratory: Diffuse wheeze appreciated all lung brown Abdomen: Soft, nontender, positive bowel sounds, no palpable masses appreciated on examination Extremities: Symmetric bilateral, bilateral lower extremities without erythema or edema patient moving all 4 extremities spontaneously. Neurologic: No focal deficits appreciated on examination. Face symmetric, muscle strength symmetric bilateral upper and lower extremities. He does have a fine essential tremor Internal Medicine: Result - Labs CBC & Chem 7: 02/08/17 05:20 02/08/17 05:20 Labs: Short CBC 02/08/17 Range/Units 05:20 WBC 7.2 (4.3-11.1) K/mcL Hgb 9.8 L (12.9-16.9) g/dL Hct 31.5 L (37.5-50.1) % Plt Count 117 L (140-400) K/mcL Neutrophils # 5.8 (1.6-8.9) K/mcL BMP 02/08/17 05:20 Sodium 139 Potassium 3.9 Chloride 112 H Carbon Dioxide 17 L BUN 46 H Creatinine 3.68 H Glucose 89 Calcium 9.1 - ABG Interpretation ABG results: PT/INR, D-dimer PT 38.9 Seconds (9.4-12.1) H 02/08/17 05:20 - VTE Documentation of Mechanical Device: Intermittent pneumatic compression device Consult Discharge Plan - Plan Referrals: Ethan Ivan DO [Primary Care Provider] - <Edy Mejia - Last Filed: 02/08/17 18:19> Date of Encounter: 02/08/17 - Assessment and plan (1) Sepsis Current Visit: Yes Status: Suspected Qualifiers: Sepsis type: Streptococcus, other Qualified Code(s): A40.8 - Other streptococcal sepsis (2) Acute parotitis Current Visit: Yes Status: Acute (3) COPD (chronic obstructive pulmonary disease) Current Visit: No Status: Chronic Qualifiers: COPD type: emphysema Emphysema type: panlobular Qualified Code(s): J43.1 - Panlobular emphysema (4) Mechanical heart valve present Current Visit: No Status: Chronic (5) CKD (chronic kidney disease) stage 4, GFR 15-29 ml/min Current Visit: Yes Status: Chronic (6) Tobacco use Current Visit: Yes Status: Chronic - Constitutional Vitals: Temp Pulse Resp BP Pulse Ox 98.0 F 56 18 149/72 98 02/08/17 15:52 02/08/17 15:52 02/08/17 16:30 02/08/17 15:52 02/08/17 16:30 Internal Medicine: Result - Labs CBC & Chem 7: 02/08/17 05:20 02/08/17 05:20 Labs: Short CBC 02/08/17 Range/Units 05:20 WBC 7.2 (4.3-11.1) K/mcL Hgb 9.8 L (12.9-16.9) g/dL Hct 31.5 L (37.5-50.1) % Plt Count 117 L (140-400) K/mcL Neutrophils # 5.8 (1.6-8.9) K/mcL BMP 02/08/17 05:20 Sodium 139 Potassium 3.9 Chloride 112 H Carbon Dioxide 17 L BUN 46 H Creatinine 3.68 H Glucose 89 Calcium 9.1 - ABG Interpretation ABG results: PT/INR, D-dimer PT 38.9 Seconds (9.4-12.1) H 02/08/17 05:20 - Attending Attestation I examined this patient and my medical decision-making was reviewed with the Resident Physician on 02/08/17. I agree with the documented findings, disposition and treatment plan as described except to the extent set forth below. Mr Kaplan is currently admitted for sepsis related to acute parotitis. He remains moderate to high risk due to potential for worsening infectious symptoms. Mr. Kaplan is starting to feel better. Less discomfort in R parotid gland. No CP or SOB. No fever or chills. Exam Alert. Comfortable Heart reg No wheeze Abd soft R parotid minimally swollen I/P 1. Parotitis 2. COPD Further diagnoses and plan as above.
[2017-02-08] MEDS ORDERED: *HR* Warfarin 4 MG TABLET PO ONE (18:00)
[2017-02-09] MEDS: *HR* HYDROcodone/Acet 5/325 mg TABLET PO PRN ×3 (00:28→21:53)
[2017-02-09] MEDS: Ampicillin/Sulbactam 1,500 MG in 0.9 % Sodium Chloride Mini Bag 100 ML IVPB SCH ×2 (00:28→12:31)
[2017-02-09] MEDS: Ipratropium/Albuterol Neb 3 ML IH SCH ×4 (03:46→22:47)
[2017-02-09 06:26] LABS: Basophils % 0.4 %; Eosinophils # 0.3 K/mcL (0.0-0.6); Eosinophils % 3.5 %; Hematocrit 32.6 % (37.5-50.1); Hemoglobin 10.2 g/dL (12.9-16.9); Immature Granulocytes % 0.4 % (0-4); Lymphocytes # 0.7 K/mcL (0.6-4.6); Mean Corpuscular HGB Conc 31.3 g/dL (31.6-35.5); Mean Corpuscular Hemoglobin 32.2 pg (28.0-33.3); Mean Corpuscular Volume 102.8 fL (83.0-100.0); Monocytes # 0.5 K/mcL (0.0-1.3); Monocytes % 7.6 %; Neutrophils # 5.6 K/mcL (1.6-8.9); Platelet Count 142 K/mcL (140-400); Red Blood Count 3.17 M/mcL (4.19-5.50); Red Cell Distribution Width 13.3 % (11.5-14.5); Segmented Neutrophils % 78.1 %
[2017-02-09 06:31] LABS: INR 3.1; Prothrombin Time 34.1 Seconds (9.4-12.1)
[2017-02-09 06:57] LABS: Albumin 2.8 g/dL (3.5-5.0); Albumin/Globulin Ratio 0.7 (1.1-2.2); Bilirubin,Total 0.5 mg/dL (0.2-1.2); Calcium 9.3 mg/dL (8.6-10.8); Potassium 4.1 mEq/L (3.5-4.5); Total Protein 6.8 g/dL (6.0-8.3)
--- NOTE | 2017-02-09 07:56 | Internal Med Progress Note ---
<Silver Justice - Last Filed: 02/09/17 10:55> Date of Encounter: 02/09/17 Time of Encounter: 07:53 - Assessment and plan (1) Sepsis Current Visit: Yes Status: Suspected Assessment and plan: Pt did meet sepsis criteria with T max 100.3, elevated WBC and Source of inf as Cellulites of neck - Leukocytosis is resolved, patient is afebrile and protitis cultures are collected - Patient improving appropriately -Continue ampicillin sulbactam IV Qualifiers: Sepsis type: Streptococcus, other Qualified Code(s): A40.8 - Other streptococcal sepsis (2) Acute parotitis Current Visit: Yes Status: Acute Assessment and plan: Patient is seen by vice president risk management and found to have acute prostatitis. Patient is continued to massage his parotid gland with expression of a grayish discharge for which cultures were collected by ENT and pending results. Cultures so far show yeast and Staph aureus with sensitivities pending. - Symptoms improving - Patient advised to stay hydrated and to avoid dehydration as this can exacerbate symptoms - Furosemide held (3) Acute kidney injury superimposed on CKD Current Visit: Yes Status: Acute Assessment and plan: History of chronic kidney disease stage IV/V, patient did come in with the setting of sepsis with no previous document a creatinine and GFR. Unsure if there is a superimposed acute kidney injury, Since receiving IV rehydration there has not been a significant change in his GFR or creatinine. Plan: - Review of outpatient encounters he is scheduled to see Dr. Padron with nephrology on 02/20/2017 - Monitor renal function, avoid nephrotoxic medications including NSAIDs and renally dose antibiotics (4) Tobacco use Current Visit: Yes Status: Chronic Assessment and plan: counseled to quit on nicotine patch (5) COPD (chronic obstructive pulmonary disease) Current Visit: No Status: Chronic Assessment and plan: Patient states he has a history of emphysema/COPD and continues to smoke daily. Symptoms stable Plan: -DuoNeb scheduled - Albuterol nebulizer every 2 hours when necessary - NicoDerm transdermal patch 14 mg daily Qualifiers: COPD type: emphysema Emphysema type: panlobular Qualified Code(s): J43.1 - Panlobular emphysema (6) Depression with anxiety Current Visit: No Status: Chronic Assessment and plan: Symptoms stable, continue home medications (7) Mechanical heart valve present Current Visit: No Status: Chronic Assessment and plan: Known mechanical heart valve placed in 2007. Need to keep INR between 2.5-3.5, current INR is therapeutic at 3.1 - Pharmacy following for coumaidn dosing (8) Macrocytic anemia Current Visit: Yes Status: Acute Assessment and plan: Patient is a hemoglobin of 9.8 which is down to 12.1 after rehydration likely dilutional MCV of 103.3. Suspect chronic macrocytic anemia in the setting of chronic kidney disease stage IV/V. - Transfuse PRBCs if hemoglobin drops below 8.0 (9) DVT prophylaxis Current Visit: Yes Status: Acute Assessment and plan: on Coumadin - Subjective Interval history: Mr. Petty 61-year-old male has been seen and evaluated patient bedside. He is rubbing his jaw and feels that the swelling has not increased over evening and he has had decreased output of grayish pus from his parotid duct. He is concerned that she has not sucking on lemon's to help continue the flow of removal and drainage. He has mild tenderness to palpation when rubbing his right jaw. He denies any fever, chills, diaphoresis or breathing problems. He says the pain is not as bad compared to admission. - Constitutional Vitals: Temp Pulse Resp BP Pulse Ox 98.0 F 57 18 119/63 94 02/09/17 07:50 02/09/17 07:50 02/09/17 07:50 02/09/17 07:50 02/09/17 07:50 General appearance: Present: A&O X 3, answers questions appropriately Exam: General: Patient alert, awake, oriented 3, interactive, in no acute distress HEENT: Normocephalic, atraumatic, mild erythema over the right jaw, mild tenderness to palpation. pupils equal reactive to light, nasal cavity patent and open septum median position, oral mucosa moist, no signs of abscess in the oral cavity, uvula midline, neck supple trachea midline no palpable lymphadenopathy, no thyromegaly. Chest: Symmetric bilateral correlating with respiratory effort, effort nonlabored. Cardiac: Regular rate and rhythm, positive S1 and S2. no bruits appreciated bilateral carotids, Radial pulses 2+ bilateral, posterior tibial and dorsal pedal pulses 2+ bilateral. Respiratory: CTABL Abdomen: Soft, nontender, positive bowel sounds, no palpable masses appreciated on examination Extremities: Symmetric bilateral, bilateral lower extremities without erythema or edema patient moving all 4 extremities spontaneously. Neurologic: No focal deficits appreciated on examination. Face symmetric, muscle strength symmetric bilateral upper and lower extremities. He does have a fine essential tremor Internal Medicine: Result - Labs CBC & Chem 7: 02/09/17 05:33 02/09/17 05:33 Labs: Short CBC 02/09/17 Range/Units 05:33 WBC 7.1 (4.3-11.1) K/mcL Hgb 10.2 L (12.9-16.9) g/dL Hct 32.6 L (37.5-50.1) % Plt Count 142 (140-400) K/mcL Neutrophils # 5.6 (1.6-8.9) K/mcL BMP 02/09/17 05:33 Sodium 143 Potassium 4.1 Chloride 113 H Carbon Dioxide 21 BUN 51 H Creatinine 3.51 H Glucose 86 Calcium 9.3 Liver Function 02/09/17 Range/Units 05:33 Total Bilirubin 0.5 (0.2-1.2) mg/dL AST 16 (5-34) Units/L ALT 12 (0-55) Units/L Alkaline Phosphatase 147 H (38-126) Units/L Albumin 2.8 L (3.5-5.0) g/dL - ABG Interpretation ABG results: PT/INR, D-dimer PT 34.1 Seconds (9.4-12.1) H 02/09/17 05:33 - VTE Documentation of Mechanical Device: Intermittent pneumatic compression device Consult Discharge Plan - Plan Referrals: Ethan Ivan DO [Primary Care Provider] - <Edy Mejia - Last Filed: 02/09/17 18:15> Date of Encounter: 02/09/17 - Assessment and plan (1) Sepsis Current Visit: Yes Status: Suspected Qualifiers: Sepsis type: methicillin susceptible Staphylococcus aureus Qualified Code(s ): A41.01 - Sepsis due to Methicillin susceptible Staphylococcus aureus (2) Acute parotitis Current Visit: Yes Status: Acute (3) COPD (chronic obstructive pulmonary disease) Current Visit: No Status: Chronic Qualifiers: COPD type: emphysema Emphysema type: panlobular Qualified Code(s): J43.1 - Panlobular emphysema (4) Mechanical heart valve present Current Visit: No Status: Chronic (5) CKD (chronic kidney disease) stage 4, GFR 15-29 ml/min Current Visit: Yes Status: Chronic (6) Tobacco use Current Visit: Yes Status: Chronic - Constitutional Vitals: Temp Pulse Resp BP Pulse Ox 97.3 F L 58 16 147/72 93 02/09/17 15:26 02/09/17 15:26 02/09/17 16:00 02/09/17 15:26 02/09/17 16:00 Internal Medicine: Result - Labs CBC & Chem 7: 02/09/17 05:33 02/09/17 05:33 Labs: Short CBC 02/09/17 Range/Units 05:33 WBC 7.1 (4.3-11.1) K/mcL Hgb 10.2 L (12.9-16.9) g/dL Hct 32.6 L (37.5-50.1) % Plt Count 142 (140-400) K/mcL Neutrophils # 5.6 (1.6-8.9) K/mcL BMP 02/09/17 05:33 Sodium 143 Potassium 4.1 Chloride 113 H Carbon Dioxide 21 BUN 51 H Creatinine 3.51 H Glucose 86 Calcium 9.3 Liver Function 02/09/17 Range/Units 05:33 Total Bilirubin 0.5 (0.2-1.2) mg/dL AST 16 (5-34) Units/L ALT 12 (0-55) Units/L Alkaline Phosphatase 147 H (38-126) Units/L Albumin 2.8 L (3.5-5.0) g/dL - ABG Interpretation ABG results: PT/INR, D-dimer PT 34.1 Seconds (9.4-12.1) H 02/09/17 05:33 - Attending Attestation I examined this patient and my medical decision-making was reviewed with the Resident Physician on 02/09/17. I agree with the documented findings, disposition and treatment plan as described except to the extent set forth below. Mr. Kaplan is currently admitted with acute parotitis. He remains moderate to high risk due to potential for worsening pain and infectious status. Mr. Kaplan feels that the swelling is returning. No fever or chills. Pain seems worse today. Exam Alert. Mild distress Mucus membranes dry Some swelling of R parotid gland felt - nothing expressed Heart reg No wheeze Abd soft I/P 1. Parotitis - cx with staph and yeast. Add one dose Vanc till final cx back. Further diagnoses and plan as above.
[2017-02-09] MEDS: Nicotine 14 MG PATCH.TD24 TD SCH (08:47)
[2017-02-09] MEDS: lamoTRIgine 100 MG TABLET PO SCH (08:48)
[2017-02-09] MEDS ORDERED: Vancomycin 1,000 MG in D5% in Water 250 ML IVPB ONE (10:40)
--- NOTE | 2017-02-09 11:29 | ENT - Progress Note ---
Date of Encounter: 02/09/17 Time of Encounter: 11:30 - Assessment and Plan (1) Acute parotitis Current Visit: Yes Status: Acute White male with obvious acute parotitis culture pending on appropriate antibiotics and improving recommend heat and massage sialagogues he should follow-up in the ENT clinic if this does not entirely resolve over the next several days patient also advised to drink a lot of fluids particularly water please note patient is on amitriptyline and furosemide can both cause dryness and may be contributory in his parotitis evaluation today reveals improvement still pending results of possible MRSA recommending continued use of milking heat fluids and lots of sialagogues which she has not been using and we have encouraged to staff to obtain a lemon for him today this patient should be followed up in the ENT clinic with Dr. Peoples in several days to evaluate the status of the right parotitis and should continue on discharge with appropriate antibiotics if patient cannot be discharged tomorrow should consult ENT department for continued evaluation in-house Subjective Patient reports: no new complaints, feels better, pain is less (Patient improving decrease in discomfort culture result staff pending results of full culture has been placed on vancomycin and probably will be able to remove this on final culture results the patient has not been getting his sialagogues have encouraged nurses to obtain lemon slices for use as a sialagogue to increase stimulation of the gland and helped to resolve the infection also should continue with heat massage and lots of liquids orally) Objective Initial Vital Signs Temp Pulse Resp BP Pulse Ox 99.1 F 82 16 161/72 96 02/05/17 08:17 02/05/17 08:17 02/05/17 08:17 02/05/17 08:17 02/05/17 08:17 - General physical appearance well developed, well nourished, no distress - Eyes PERRL - ENT normal pinna - Neck other (Marked decrease in size of right parotid swelling persistent pus extruded on milking of the gland) - Neurologic CN 2-12 grossly intact - Psychiatric oriented to time, oriented to person, oriented to place, speech is normal - Labs 02/09/17 05:33 02/09/17 05:33 Diabetes panel 02/09/17 Range/Units 05:33 Sodium 143 (136-145) mEq/L Potassium 4.1 (3.5-4.5) mEq/L Chloride 113 H (98-109) mEq/L Carbon Dioxide 21 (19-29) mEq/L BUN 51 H (8-26) mg/dL Creatinine 3.51 H (0.72-1.25) mg/dL Glucose 86 (70-99) mg/dL Calcium 9.3 (8.6-10.8) mg/dL AST 16 (5-34) Units/L ALT 12 (0-55) Units/L Alkaline Phosphatase 147 H (38-126) Units/L Albumin 2.8 L (3.5-5.0) g/dL Calcium panel 02/09/17 Range/Units 05:33 Calcium 9.3 (8.6-10.8) mg/dL Albumin 2.8 L (3.5-5.0) g/dL Pituitary panel 02/09/17 Range/Units 05:33 Sodium 143 (136-145) mEq/L Potassium 4.1 (3.5-4.5) mEq/L Chloride 113 H (98-109) mEq/L Carbon Dioxide 21 (19-29) mEq/L BUN 51 H (8-26) mg/dL Creatinine 3.51 H (0.72-1.25) mg/dL Glucose 86 (70-99) mg/dL Calcium 9.3 (8.6-10.8) mg/dL Adrenal panel 02/09/17 Range/Units 05:33 Sodium 143 (136-145) mEq/L Potassium 4.1 (3.5-4.5) mEq/L Chloride 113 H (98-109) mEq/L Carbon Dioxide 21 (19-29) mEq/L BUN 51 H (8-26) mg/dL Creatinine 3.51 H (0.72-1.25) mg/dL Glucose 86 (70-99) mg/dL Calcium 9.3 (8.6-10.8) mg/dL Total Bilirubin 0.5 (0.2-1.2) mg/dL AST 16 (5-34) Units/L ALT 12 (0-55) Units/L Alkaline Phosphatase 147 H (38-126) Units/L Albumin 2.8 L (3.5-5.0) g/dL - VTE Documentation of Mechanical Device: Intermittent pneumatic compression device Consult Discharge Plan - Plan Referrals: Ethan Ivan DO [Primary Care Provider] -
[2017-02-09] MEDS ORDERED: *HR* Warfarin 4 MG TABLET PO SCH (18:00)
[2017-02-09] MEDS: Sennosides/Docusate Sodium TABLET PO SCH ×2 (21:46→23:29)
[2017-02-10] MEDS: Ampicillin/Sulbactam 1,500 MG in 0.9 % Sodium Chloride Mini Bag 100 ML IVPB SCH ×2 (01:14→12:36)
[2017-02-10] MEDS: Ipratropium/Albuterol Neb 3 ML IH SCH ×3 (04:36→15:48)
[2017-02-10 05:18] LABS: Basophils % 0.3 %; Eosinophils # 0.2 K/mcL (0.0-0.6); Eosinophils % 3.3 %; Hematocrit 32.8 % (37.5-50.1); Hemoglobin 10.1 g/dL (12.9-16.9); Immature Granulocytes % 0.6 % (0-4); Lymphocytes # 0.8 K/mcL (0.6-4.6); Lymphocytes % 10.9 %; Mean Corpuscular HGB Conc 30.8 g/dL (31.6-35.5); Mean Corpuscular Hemoglobin 31.5 pg (28.0-33.3); Mean Corpuscular Volume 102.2 fL (83.0-100.0); Mean Platelet Volume 11.4 fL (9.4-12.4); Monocytes # 0.5 K/mcL (0.0-1.3); Monocytes % 7.6 %; Neutrophils # 5.5 K/mcL (1.6-8.9); Platelet Count 152 K/mcL (140-400); Red Blood Count 3.21 M/mcL (4.19-5.50); Red Cell Distribution Width 13.3 % (11.5-14.5); Segmented Neutrophils % 77.3 %
[2017-02-10 05:22] LABS: INR 2.9; Prothrombin Time 31.8 Seconds (9.4-12.1)
[2017-02-10 05:35] LABS: Albumin 2.8 g/dL (3.5-5.0); Albumin/Globulin Ratio 0.8 (1.1-2.2); Bilirubin,Total 0.5 mg/dL (0.2-1.2); Calcium 9.3 mg/dL (8.6-10.8); Globulin 3.7 g/dL (2.4-3.5); Potassium 4.3 mEq/L (3.5-4.5); Total Protein 6.5 g/dL (6.0-8.3)
[2017-02-10] MEDS: Nicotine 14 MG PATCH.TD24 TD SCH (08:38)
[2017-02-10] MEDS: lamoTRIgine 100 MG TABLET PO SCH (08:38)
[2017-02-10] MEDS: Sennosides/Docusate Sodium TABLET PO SCH (08:38)
--- NOTE | 2017-02-10 09:26 | ENT - Progress Note ---
<Derick Pérez - Last Filed: 02/10/17 12:33> Date of Encounter: 02/10/17 Time of Encounter: 09:24 - Assessment and Plan (1) Acute parotitis Current Visit: Yes Status: Acute Continue supportive measures by encouraging adequate hydration, parotid heating/ massages, and sialogogues such as lemon drops Wound cultures initially positive for MSSA; continue IV Ampicillin for now Recommend 7 days of oral Amoxicillin upon discharge Subjective Patient reports: no new complaints Narrative: Pt states he still is having drainage from his parotid gland on the right side of his mouth. He states that although he was instructed to get lemon drops as a sialogogue, the staff has been unable to provide him with any. He states the pain has improved and he has no fevers, chills overnight. Objective Initial Vital Signs Temp Pulse Resp BP Pulse Ox 99.1 F 82 16 161/72 96 02/05/17 08:17 02/05/17 08:17 02/05/17 08:17 02/05/17 08:17 02/05/17 08:17 - General physical appearance well developed, well nourished, no distress, no chronically ill, no obese - Eyes PERRL, normal ocular movement - ENT normal pinna, normal nares, normal mucosa, Other (yellow purulent drainage from right parotid gland that was easily ellicited with parotid massage; minimal swelling over right parotid gland upon palpation) - Labs 02/10/17 04:57 02/10/17 04:57 Diabetes panel 02/10/17 Range/Units 04:57 Sodium 142 (136-145) mEq/L Potassium 4.3 (3.5-4.5) mEq/L Chloride 116 H (98-109) mEq/L Carbon Dioxide 17 L (19-29) mEq/L BUN 46 H (8-26) mg/dL Creatinine 3.52 H (0.72-1.25) mg/dL Glucose 81 (70-99) mg/dL Calcium 9.3 (8.6-10.8) mg/dL AST 16 (5-34) Units/L ALT 12 (0-55) Units/L Alkaline Phosphatase 143 H (38-126) Units/L Albumin 2.8 L (3.5-5.0) g/dL Calcium panel 02/10/17 Range/Units 04:57 Calcium 9.3 (8.6-10.8) mg/dL Albumin 2.8 L (3.5-5.0) g/dL Pituitary panel 02/10/17 Range/Units 04:57 Sodium 142 (136-145) mEq/L Potassium 4.3 (3.5-4.5) mEq/L Chloride 116 H (98-109) mEq/L Carbon Dioxide 17 L (19-29) mEq/L BUN 46 H (8-26) mg/dL Creatinine 3.52 H (0.72-1.25) mg/dL Glucose 81 (70-99) mg/dL Calcium 9.3 (8.6-10.8) mg/dL Adrenal panel 02/10/17 Range/Units 04:57 Sodium 142 (136-145) mEq/L Potassium 4.3 (3.5-4.5) mEq/L Chloride 116 H (98-109) mEq/L Carbon Dioxide 17 L (19-29) mEq/L BUN 46 H (8-26) mg/dL Creatinine 3.52 H (0.72-1.25) mg/dL Glucose 81 (70-99) mg/dL Calcium 9.3 (8.6-10.8) mg/dL Total Bilirubin 0.5 (0.2-1.2) mg/dL AST 16 (5-34) Units/L ALT 12 (0-55) Units/L Alkaline Phosphatase 143 H (38-126) Units/L Albumin 2.8 L (3.5-5.0) g/dL - VTE Documentation of Mechanical Device: Intermittent pneumatic compression device Consult Discharge Plan - Plan Instructions: Cellulitis (DC) Referrals: Ethan Ivan DO [Primary Care Provider] - Prescriptions: HYDROcodone/Acet 5/325 mg [[place] 5-325 mg] 1 tab PO Q8HR PRN #15 tab PRN Reason: Moderate Pain Amoxicillin/Clavulanate [Augmentin] 500 mg PO BIDWM #10 tablet Nystatin [Nystatin Suspension] 100,000 unit PO QID #1 oral.susp <Amirah Patino - Last Filed: 02/10/17 13:44> Date of Encounter: 02/10/17 - Assessment and Plan (1) Acute parotitis Current Visit: Yes Status: Acute Agree with above. Patient with significant clinical improvement and Right parotid gland is only slightly indurated and infection is improving with use of IV antibiotics. Encouraged patient to perform parotid massage and continue PO antibiotics on discharge. Patient to follow up with Dr. Greco with ENT after discharge. Objective Initial Vital Signs Temp Pulse Resp BP Pulse Ox 99.1 F 82 16 161/72 96 02/05/17 08:17 02/05/17 08:17 02/05/17 08:17 02/05/17 08:17 02/05/17 08:17 - Labs 02/10/17 04:57 02/10/17 04:57 Diabetes panel 02/10/17 Range/Units 04:57 Sodium 142 (136-145) mEq/L Potassium 4.3 (3.5-4.5) mEq/L Chloride 116 H (98-109) mEq/L Carbon Dioxide 17 L (19-29) mEq/L BUN 46 H (8-26) mg/dL Creatinine 3.52 H (0.72-1.25) mg/dL Glucose 81 (70-99) mg/dL Calcium 9.3 (8.6-10.8) mg/dL AST 16 (5-34) Units/L ALT 12 (0-55) Units/L Alkaline Phosphatase 143 H (38-126) Units/L Albumin 2.8 L (3.5-5.0) g/dL Calcium panel 02/10/17 Range/Units 04:57 Calcium 9.3 (8.6-10.8) mg/dL Albumin 2.8 L (3.5-5.0) g/dL Pituitary panel 02/10/17 Range/Units 04:57 Sodium 142 (136-145) mEq/L Potassium 4.3 (3.5-4.5) mEq/L Chloride 116 H (98-109) mEq/L Carbon Dioxide 17 L (19-29) mEq/L BUN 46 H (8-26) mg/dL Creatinine 3.52 H (0.72-1.25) mg/dL Glucose 81 (70-99) mg/dL Calcium 9.3 (8.6-10.8) mg/dL Adrenal panel 02/10/17 Range/Units 04:57 Sodium 142 (136-145) mEq/L Potassium 4.3 (3.5-4.5) mEq/L Chloride 116 H (98-109) mEq/L Carbon Dioxide 17 L (19-29) mEq/L BUN 46 H (8-26) mg/dL Creatinine 3.52 H (0.72-1.25) mg/dL Glucose 81 (70-99) mg/dL Calcium 9.3 (8.6-10.8) mg/dL Total Bilirubin 0.5 (0.2-1.2) mg/dL AST 16 (5-34) Units/L ALT 12 (0-55) Units/L Alkaline Phosphatase 143 H (38-126) Units/L Albumin 2.8 L (3.5-5.0) g/dL
--- NOTE | 2017-02-10 10:01 | Internal Med Progress Note ---
<Remberto Cheung - Last Filed: 02/10/17 12:46> Date of Encounter: 02/10/17 Time of Encounter: 10:00 - Assessment and plan (1) Sepsis Status: Resolved Assessment and plan: Pt did meet sepsis criteria with T max 100.3, elevated WBC and Source of inf as Cellulites of neck - Leukocytosis is resolved, patient is afebrile and protitis cultures are collected - Patient improving appropriately -Continue ampicillin sulbactam IV Qualifiers: Sepsis type: methicillin susceptible Staphylococcus aureus Qualified Code(s ): A41.01 - Sepsis due to Methicillin susceptible Staphylococcus aureus (2) Acute parotitis Status: Acute Assessment and plan: Patient is seen by greens cutter and found to have acute prostatitis. Patient is continued to massage his parotid gland with expression of a grayish discharge for which cultures were collected by ENT and pending results. Cultures so far show yeast and Staph aureus with sensitivities pending. - Patient says pain has been the same since yesterday but the discharge has been improving. - Patient advised to stay hydrated and to avoid dehydration as this can exacerbate symptoms - Furosemide held (3) Acute kidney injury superimposed on CKD Status: Resolved Assessment and plan: History of chronic kidney disease stage IV/V, patient did come in with the setting of sepsis with no previous document a creatinine and GFR. Unsure if there is a superimposed acute kidney injury, Since receiving IV rehydration there has not been a significant change in his GFR or creatinine. Plan: - Review of outpatient encounters he is scheduled to see Dr. Padron with nephrology on 02/20/2017 - Monitor renal function, avoid nephrotoxic medications including NSAIDs and renally dose antibiotics (4) Tobacco use Status: Chronic Assessment and plan: counseled to quit on nicotine patch (5) Macrocytic anemia Status: Acute Assessment and plan: Patient hemoglobin stable at 10.1. Suspect chronic macrocytic anemia in the setting of chronic kidney disease stage IV/V. - Transfuse PRBCs if hemoglobin drops below 8.0 (6) COPD (chronic obstructive pulmonary disease) Status: Chronic Assessment and plan: Patient states he has a history of emphysema/COPD and continues to smoke daily. Symptoms stable Plan: -DuoNeb scheduled - Albuterol nebulizer every 2 hours when necessary - NicoDerm transdermal patch 14 mg daily Qualifiers: COPD type: emphysema Emphysema type: panlobular Qualified Code(s): J43.1 - Panlobular emphysema (7) Depression with anxiety Status: Chronic Assessment and plan: Symptoms stable, continue home medications (8) Mechanical heart valve present Status: Chronic Assessment and plan: Known mechanical heart valve placed in 2007. Need to keep INR between 2.5-3.5, current INR is therapeutic at 2.9. - Pharmacy following for coumaidn dosing (9) DVT prophylaxis Status: Acute - Subjective Interval history: Patient is a 61 yo M with a PMH of COPD and CKD that presented for R lateral neck pain. Patient was subsequently diagnosed with acute parotits and started on IV ampicillin/sublactam. When seen today, patient still complains of pain in his R cheek. The pain has been a 9/10 and constant and hasn't really changed since yesterday. He still experiences white discharge from the inside of his cheek, but says it has improved in frequency since admission. The pain in his R lateral neck has improved to a 6/10 since admission. He denies any fever, chills , nausea, vomiting, numbness/tingling, chest pain, light-headedness, syncope, or abdominal pain. Patient has shortness of breath secondary to his COPD, but it has been at his baseline. He has been having a productive cough of clear sputum, but again that has been at his baseline due to his COPD. - Constitutional Vitals: Temp Pulse Resp BP Pulse Ox 98.1 F 80 18 146/72 95 02/10/17 07:54 02/10/17 07:54 02/10/17 07:54 02/10/17 07:54 02/10/17 07:54 General appearance: Present: A&O X 3, answers questions appropriately - ENT ENT exam: Present: mucous membranes moist Additional comments: Swelling of R bucossal area with tenderness to palpation. White discharge noted upon deep pressure. No cervical, clavicular, submandibular, or occipital lymphadenopathy noted bilaterally. tenderness to palpation of R submandibular area. No erythema noted on R cervical side. - Respiratory Respiratory exam: Present: CTAB, rhonchi. Absent: respiratory distress, wheezes , tachypnea - Cardiovascular Cardiovascular exam: Present: RRR, +S1, +S2. Absent: diastolic murmur, systolic murmur, tachycardia - GI/Abdominal GI/Abdominal exam: Present: normal bowel sounds, soft. Absent: guarding, rebound, tenderness Internal Medicine: Result - Labs CBC & Chem 7: 02/10/17 04:57 02/10/17 04:57 Labs: Short CBC 02/10/17 Range/Units 04:57 WBC 7.1 (4.3-11.1) K/mcL Hgb 10.1 L (12.9-16.9) g/dL Hct 32.8 L (37.5-50.1) % Plt Count 152 (140-400) K/mcL Neutrophils # 5.5 (1.6-8.9) K/mcL BMP 02/10/17 04:57 Sodium 142 Potassium 4.3 Chloride 116 H Carbon Dioxide 17 L BUN 46 H Creatinine 3.52 H Glucose 81 Calcium 9.3 Liver Function 02/10/17 Range/Units 04:57 Total Bilirubin 0.5 (0.2-1.2) mg/dL AST 16 (5-34) Units/L ALT 12 (0-55) Units/L Alkaline Phosphatase 143 H (38-126) Units/L Albumin 2.8 L (3.5-5.0) g/dL - ABG Interpretation ABG results: PT/INR, D-dimer PT 31.8 Seconds (9.4-12.1) H 02/10/17 04:57 - VTE Documentation of Mechanical Device: Intermittent pneumatic compression device Consult Discharge Plan - Plan Instructions: Cellulitis (DC) Referrals: Ethan Ivan DO [Primary Care Provider] - Prescriptions: HYDROcodone/Acet 5/325 mg [[place] 5-325 mg] 1 tab PO Q8HR PRN #15 tab PRN Reason: Moderate Pain Amoxicillin/Clavulanate [Augmentin] 500 mg PO BIDWM #10 tablet Nystatin [Nystatin Suspension] 100,000 unit PO QID #1 oral.susp <Edy Mejia - Last Filed: 02/10/17 18:43> Date of Encounter: 02/10/17 - Assessment and plan (1) Sepsis Status: Resolved Qualifiers: Sepsis type: methicillin susceptible Staphylococcus aureus Qualified Code(s ): A41.01 - Sepsis due to Methicillin susceptible Staphylococcus aureus (2) Acute parotitis Status: Acute (3) COPD (chronic obstructive pulmonary disease) Status: Chronic Qualifiers: COPD type: emphysema Emphysema type: panlobular Qualified Code(s): J43.1 - Panlobular emphysema (4) Mechanical heart valve present Status: Chronic (5) CKD (chronic kidney disease) stage 4, GFR 15-29 ml/min Status: Chronic (6) Tobacco use Status: Chronic - Constitutional Vitals: Temp Pulse Resp BP Pulse Ox 98.3 F 56 14 145/79 95 02/10/17 11:37 02/10/17 11:37 02/10/17 11:37 02/10/17 11:37 02/10/17 11:37 Internal Medicine: Result - Labs CBC & Chem 7: 02/10/17 04:57 02/10/17 04:57 Labs: Short CBC 02/10/17 Range/Units 04:57 WBC 7.1 (4.3-11.1) K/mcL Hgb 10.1 L (12.9-16.9) g/dL Hct 32.8 L (37.5-50.1) % Plt Count 152 (140-400) K/mcL Neutrophils # 5.5 (1.6-8.9) K/mcL BMP 02/10/17 04:57 Sodium 142 Potassium 4.3 Chloride 116 H Carbon Dioxide 17 L BUN 46 H Creatinine 3.52 H Glucose 81 Calcium 9.3 Liver Function 02/10/17 Range/Units 04:57 Total Bilirubin 0.5 (0.2-1.2) mg/dL AST 16 (5-34) Units/L ALT 12 (0-55) Units/L Alkaline Phosphatase 143 H (38-126) Units/L Albumin 2.8 L (3.5-5.0) g/dL - ABG Interpretation ABG results: PT/INR, D-dimer PT 31.8 Seconds (9.4-12.1) H 02/10/17 04:57 - Attending Attestation Please see discharge summary of this date.
--- NOTE | 2017-02-10 11:03 | Discharge Summary ---
Addendum entered and electronically signed by Remberto Cheung DO 02/10/17 13 :43: Patient to be discharged to [facility]. Original Note: <Remberto Cheung - Last Filed: 02/10/17 12:38> Date of Encounter: 02/10/17 Time of Encounter: 10:15 - Discharge Diagnosis (1) Sepsis Priority: Primary Status: Resolved Qualifiers: Sepsis type: methicillin susceptible Staphylococcus aureus Qualified Code(s ): A41.01 - Sepsis due to Methicillin susceptible Staphylococcus aureus (2) Acute parotitis Priority: Primary Status: Acute (3) Acute kidney injury superimposed on CKD Priority: Primary Status: Resolved (4) Tobacco use Priority: Secondary Status: Chronic (5) Macrocytic anemia Priority: Primary Status: Acute (6) COPD (chronic obstructive pulmonary disease) Priority: Primary Status: Chronic Qualifiers: COPD type: emphysema Emphysema type: panlobular Qualified Code(s): J43.1 - Panlobular emphysema (7) Depression with anxiety Priority: Secondary Status: Chronic (8) Mechanical heart valve present Priority: Secondary Status: Chronic (9) DVT prophylaxis Priority: Primary Status: Acute (10) Oral thrush Priority: Primary Status: Acute - Discharge Medications Prescriptions: HYDROcodone/Acet 5/325 mg [[place] 5-325 mg] 1 tab PO Q8HR PRN #15 tab PRN Reason: Moderate Pain Amoxicillin/Clavulanate [Augmentin] 500 mg PO BIDWM #10 tablet Nystatin [Nystatin Suspension] 100,000 unit PO QID #1 oral.susp Home Medications: Acetaminophen with Codeine [Acetaminophen-Cod #4 Tablet] 1 tab PO Q8H 02/05/17 [ History] Amitriptyline HCl [Amitriptyline HCl] 150 mg PO BID 02/05/17 [History] Furosemide [Lasix] 40 mg PO DAILY 02/05/17 [History] Quetiapine Fumarate [Seroquel] 50 mg PO BID 02/05/17 [History] Tizanidine HCl [Tizanidine HCl] 4 mg PO TID PRN 02/05/17 [History] Warfarin [Coumadin] 5 mg PO DAILY 02/05/17 [History] lamoTRIgine [Lamictal] 100 mg PO DAILY 02/05/17 [History] Amoxicillin/Clavulanate [Augmentin] 500 mg PO BIDWM #10 tablet 02/10/17 [Rx] HYDROcodone/Acet 5/325 mg [[place] 5-325 mg] 1 tab PO Q8HR PRN #15 tab 02/10/17 [ Rx] Nystatin [Nystatin Suspension] 100,000 unit PO QID #1 oral.susp 02/10/17 [Rx] Allergies/Adverse Reactions: 3 Allergy/AdvReac Type Severity Reaction Status Date / Time propoxyphene [From Darvon] Allergy Hives Verified 02/05/17 08:21 Date of admission: 02/05/17 13:56 Primary care physician: Ethan Ivan, Consults: 02/07/17 09:32 Consult to Occupational Therapy [CONS] Routine Comment: Evaluate, develop and implement POC Reason for Consult: discharge planning Consult to Physical Therapy [CONS] Routine Comment: Evaluate, develop and implement POC Reason for Consult: discharge planning Consult to [facility] [employer] [CONS] Routine Reason for SW Consult: needs psychosocial evaluation; (please read notes) 02/07/17 17:25 Consult to ENT [CONS] Routine Consulting Provider: JOHN Coreas Reason for Consult: Rt neck cellulities Time Notified: 17:25 Call Completed: Yes Discharging clinician: Edy Mejia ([facility]) Anticipated date of discharge: 02/10/17 - Patient Status Disposition: Home, Self-Care Condition: Good Overall status at discharge: patient is progressing back to baseline - Discharge Instructions Instructions: Cellulitis (DC) Follow Up With: Ethan Ivan DO [Primary Care Provider] - - Diet and Activity Activity: resume usual activities as tolerated Diet: other (Renal diet) Interval History: Mr. Kaplan is a 61 year old male with a PMH of COPD, CKD, and mitral valve replacement with mechanical valve (2007) that presented to the ED for R lateral neck pain for the past 24 hours. Patient presented with swollen lymph node of the R jaw that extended down to the R shoulder. Patient also presented with some confusion Hospital course: Mr. Kaplan is a 61 year old male with a PMH of COPD, CKD, and mitral valve replacement with mechanical valve (2007) that presented to the ED for R lateral neck pain for the past 24 hours. Patient presented with swollen lymph node of the R jaw that extended down to the R shoulder. Patient also presented with some confusion. Upon presentation lab work did reveal WBC 16.3, he was afebrile , creatinine was 3.66, troponin 0.04, INR was 2. CXR with cardiomegaly and some vascular congestion. CT of head was negative for any acute intracranial abnormalities. CT cervical spine no fractures, no prevertebral soft tissue swelling. He was given IV fluids as well as ampicillin/sulbactam. UA reveled no signs of infection. Patient has subsequently diagnosed with parotidis. Wound culture revealed Staph A. When seen today, patient still complains of pain in his R cheek. The pain has been a 9/10 and constant and hasn't really changed since yesterday. He still experiences white discharge from the inside of his cheek, but says it has improved in frequency since admission. The pain in his R lateral neck has improved to a 6/10 since admission. He denies any fever, chills , nausea, vomiting, numbness/tingling, chest pain, light-headedness, syncope, or abdominal pain. Patient has shortness of breath secondary to his COPD, but it has been at his baseline. He has been having a productive cough of clear sputum, but again that has been at his baseline due to his COPD. Patient will be discharged with augmentin for a total of 9 days on antibiotics. Patient will also be discharged with nystatin for his oral thrush. - Time Spent with Patient Total time spent providing and/or coordinating discharge services: Greater than 30 minutes - Constitutional Vitals: Temp Pulse Resp BP Pulse Ox 98.1 F 80 18 146/72 95 02/10/17 07:54 02/10/17 07:54 02/10/17 10:27 02/10/17 07:54 02/10/17 10:27 General appearance: Present: A&O X 3, answers questions appropriately - ENT ENT exam: Present: mucous membranes moist Additional comments: Swelling of R bucossal area with tenderness to palpation. White discharge noted upon deep pressure. No cervical, clavicular, submandibular, or occipital lymphadenopathy noted bilaterally. tenderness to palpation of R submandibular area. No erythema noted on R cervical side. Some white plaques toward the posterior oropharynx. - Respiratory Respiratory exam: Present: CTAB. Absent: respiratory distress, wheezes, tachypnea - Cardiovascular Cardiovascular exam: Present: RRR, +S1, +S2. Absent: diastolic murmur, systolic murmur, tachycardia - GI/Abdominal GI/Abdominal exam: Present: normal bowel sounds, soft. Absent: guarding, rebound, tenderness - VTE Documentation of Mechanical Device: Intermittent pneumatic compression device <Edy Mejia - Last Filed: 02/10/17 18:47> Date of Encounter: 02/10/17 - Discharge Diagnosis (1) Sepsis Priority: Primary Status: Resolved Qualifiers: Sepsis type: methicillin susceptible Staphylococcus aureus Qualified Code(s ): A41.01 - Sepsis due to Methicillin susceptible Staphylococcus aureus (2) Acute parotitis Status: Acute (3) COPD (chronic obstructive pulmonary disease) Status: Chronic Qualifiers: COPD type: emphysema Emphysema type: panlobular Qualified Code(s): J43.1 - Panlobular emphysema (4) Mechanical heart valve present Status: Chronic (5) CKD (chronic kidney disease) stage 4, GFR 15-29 ml/min Priority: Secondary Status: Chronic (6) Tobacco use Status: Chronic Date of admission: 02/05/17 13:56 Primary care physician: Ethan Ivan, Consults: 02/07/17 09:32 Consult to Occupational Therapy [CONS] Routine Comment: Evaluate, develop and implement POC Reason for Consult: discharge planning Consult to Physical Therapy [CONS] Routine Comment: Evaluate, develop and implement POC Reason for Consult: discharge planning Consult to [facility] [CONS] Routine Reason for SW Consult: needs psychosocial evaluation; (please read notes) 02/07/17 17:25 Consult to ENT [CONS] Routine Consulting Provider: ENT Gile Reason for Consult: Rt neck cellulities Time Notified: 17:25 Call Completed: Yes Hospital course: Mr. Kaplan is a 61 year old male - Time Spent with Patient Total time spent providing and/or coordinating discharge services: 39min - Constitutional Vitals: Temp Pulse Resp BP Pulse Ox 98.3 F 56 14 145/79 95 02/10/17 11:37 02/10/17 11:37 02/10/17 11:37 02/10/17 11:37 02/10/17 11:37 - Attending Attestation I examined this patient and my medical decision-making was reviewed with the Resident Physician on 02/10/17. I agree with the documented findings, disposition and treatment plan as described except to the extent set forth below. Mr Kaplan has been admitted for sepsis related to acute parotitis. He is now afebrile with stable vitals. His cx has returned MSSA and yeast. He will be discharged to SNF with PO abx. Exam Alert Comfortable press tender R parotid Heart reg No wheeze Abd soft Plan D/C to SNF today
[2017-02-10 11:38] VITALS: BP 145/79
[2017-02-10] MEDS: *HR* HYDROcodone/Acet 5/325 mg TABLET PO PRN (11:48)
--- NOTE | 2017-02-10 13:47 | Physician Discharge Referral ---
ExtendedCare Referral Info Transfer To: [facility] Provider in Charge: Dr. Mejia Provider in Charge after Transfer: PCP - Diagnosis (1) Sepsis Priority: Primary Status: Resolved (2) Acute parotitis Priority: Primary Status: Acute (3) Acute kidney injury superimposed on CKD Priority: Primary Status: Resolved (4) Tobacco use Priority: Secondary Status: Chronic (5) Macrocytic anemia Priority: Primary Status: Acute (6) COPD (chronic obstructive pulmonary disease) Priority: Primary Status: Chronic (7) Depression with anxiety Priority: Secondary Status: Chronic (8) Mechanical heart valve present Priority: Secondary Status: Chronic (9) DVT prophylaxis Priority: Primary Status: Acute - Transfer Medications Prescriptions: HYDROcodone/Acet 5/325 mg [[place] 5-325 mg] 1 tab PO Q8HR PRN #15 tab PRN Reason: Moderate Pain Amoxicillin/Clavulanate [Augmentin] 500 mg PO BIDWM #10 tablet Nystatin [Nystatin Suspension] 100,000 unit PO QID #1 oral.susp Home Medications: Acetaminophen with Codeine [Acetaminophen-Cod #4 Tablet] 1 tab PO Q8H 02/05/17 [ History] Amitriptyline HCl [Amitriptyline HCl] 150 mg PO BID 02/05/17 [History] Furosemide [Lasix] 40 mg PO DAILY 02/05/17 [History] Quetiapine Fumarate [Seroquel] 50 mg PO BID 02/05/17 [History] Tizanidine HCl [Tizanidine HCl] 4 mg PO TID PRN 02/05/17 [History] Warfarin [Coumadin] 5 mg PO DAILY 02/05/17 [History] lamoTRIgine [Lamictal] 100 mg PO DAILY 02/05/17 [History] Amoxicillin/Clavulanate [Augmentin] 500 mg PO BIDWM #10 tablet 02/10/17 [Rx] HYDROcodone/Acet 5/325 mg [[place] 5-325 mg] 1 tab PO Q8HR PRN #15 tab 02/10/17 [ Rx] Nystatin [Nystatin Suspension] 100,000 unit PO QID #1 oral.susp 02/10/17 [Rx] Allergies/Adverse Reactions: 3 Allergy/AdvReac Type Severity Reaction Status Date / Time propoxyphene [From Darvon] Allergy Hives Verified 02/05/17 08:21 - Respiratory Orders Smoking Cessation: Smoking cessation has been advised. For more information, call the [place] Tobacco Quit Line at 2-455-LKPR-NOW. - Ancillary Orders May use pressure relief devices daily prn, May go on TEX w/family/respon democrat w /meds at nurse discretion PRN, May consult with Dentist, Apartment Leasing Consultant, Through Freight Engineer PRN - Advance Directives Code Status: Full Code - Mobility Orders Ambulate - Rehabiliation Orders Rehab Potential: Good - Treatments Skin tear care topically daily PRN per policy, May check for fecal impaction rectally daily PRN, Fleet enema rectally every other day PRN cleansing purposes - Diet Orders Renal CERTIFICATION: I certify that the transfer of the above named patient to an Extended Care Facility is necessary for the continuing treatment of the diagnosis listed. The above information is true and accurate reflection of patient's current condition. Confidential - Redisclosure prohibited without a patient's written consent.
[2017-02-10] MEDS ORDERED: *HR* Warfarin 5 MG TABLET PO ONE (18:00)
== END 2017-02-10 17:17 | disposition home or self-care (01) | DRG 872 ==
LOC: EMEROO 08:08 → 2ANU 08:08 → SUATTDRO 13:56 → 2ANU 14:16 → 3ANU 20:58
PROVIDERS: ADMIT Internal Medicine; ATTEND Internal Medicine

== ENCOUNTER 2020-07-20 17:17 | Inpatient (IN) ==
[2020-07-20] MEDS ORDERED: *HR* Promethazine 25 MG/ML VIAL IM PRN (21:12)
[2020-07-20] MEDS ORDERED: Ondansetron 4 MG/2 ML VIAL IVP PRN (21:12)
[2020-07-20] MEDS ORDERED: Naloxone 0.4 MG/ML INJ IVP PRN (21:12)
[2020-07-20 22:03] LABS: Bilirubin,Urine Negative (Negative); Blood,Urine Negative (Negative); Clarity,Urine Clear (Clear); Color,Urine Light-Yellow (Yellow); Glucose,Urine (UA) Normal (Normal); Ketones,Urine Negative (Negative); Leukocyte Esterase,Urine Negative (Negative); Nitrite,Urine Negative (Negative); Protein,Urine Trace mg/dL (Neg-Trace); Specific Gravity,Urine 1.012 (1.010-1.025); Urobilinogen,Urine Normal (Normal)
[2020-07-20 22:15] LABS: Protein/Creatinine Ratio,Urine 0.47 mg/mg (0.00-0.20); Sodium, Urine 32.5 mEq/L
[2020-07-20] MEDS: 0.9 % Sodium Chloride 1,000 ML IVC SCH (22:59)
[2020-07-21] MEDS ORDERED: amLODIPine 5 MG TABLET PO SCH (00:45)
[2020-07-21] MEDS: Mirtazapine 15 MG TABLET PO SCH ×2 (01:31→22:09)
[2020-07-21] MEDS: lamoTRIgine 100 MG TABLET PO SCH ×2 (01:31→17:57)
[2020-07-21 03:25] LABS: Basophils # 0.1 K/mcL (0.0-0.2); Basophils % 0.6 %; Eosinophils # 0.3 K/mcL (0.0-0.6); Eosinophils % 2.6 %; Hematocrit 32.5 % (37.5-50.1); Hemoglobin 9.7 g/dL (12.9-16.9); Immature Granulocytes % 0.3 % (0-4); Lymphocytes # 0.6 K/mcL (0.6-4.6); Lymphocytes % 5.6 %; Mean Corpuscular HGB Conc 29.8 g/dL (31.6-35.5); Mean Corpuscular Hemoglobin 30.4 pg (28.0-33.3); Mean Corpuscular Volume 101.9 fL (83.0-100.0); Mean Platelet Volume 10.1 fL (9.4-12.4); Monocytes % 9.7 %; Platelet Count 212 K/mcL (140-400); Red Blood Count 3.19 M/mcL (4.19-5.50); Segmented Neutrophils % 81.2 %; White Blood Count 9.8 K/mcL (4.3-11.1)
[2020-07-21 03:27] LABS: INR 1.8; Prothrombin Time 20.4 Seconds (9.4-12.1)
[2020-07-21 03:33] LABS: Albumin 3.8 g/dL (3.5-5.7); Albumin/Globulin Ratio 1.1 (1.1-2.2); Bilirubin,Total 0.6 mg/dL (0.3-1.0); Chol/HDL Ratio 3.4 (0-4.9); Globulin 3.5 g/dL (2.4-3.5); Magnesium 2.5 mg/dL (1.6-2.6); Phosphorous 4.6 mg/dL (2.7-4.5); Potassium 4.1 mEq/L (3.5-5.1); Total Protein 7.3 g/dL (6.4-8.9); Troponin I 0.04 ng/mL (< 0.04)
[2020-07-21] MEDS ORDERED: Tiotropium 10 INH DOSE IH ONE (07:27)
[2020-07-21] MEDS: Tiotropium 10 INH DOSE IH SCH (07:33)
[2020-07-21] MEDS: risperiDONE 1 MG TABLET PO SCH (07:50)
[2020-07-21] MEDS: Carbidopa/Levodopa 25/100 TABLET PO SCH (07:50)
[2020-07-21] MEDS: allopurinoL 100 MG TABLET PO SCH (07:50)
[2020-07-21] MEDS: 0.9 % Sodium Chloride 1,000 ML IVC SCH (07:51)
[2020-07-21] MEDS ORDERED: *HR* Heparin 5,000 UNIT/ML VIAL IVP PRN (09:31)
[2020-07-21] MEDS ORDERED: *HR* Heparin 5,000 UNIT/ML VIAL IVP ONE (09:31)
[2020-07-21] MEDS: Heparin 25,000UNIT/250ML 1/2NS 25,000 UNIT/250 ML IV.SOLN IVC SCH (10:50)
[2020-07-21 13:01] LABS: Hematocrit 32.5 % (37.5-50.1); Hemoglobin 9.8 g/dL (12.9-16.9); Mean Corpuscular HGB Conc 30.2 g/dL (31.6-35.5); Mean Corpuscular Hemoglobin 30.9 pg (28.0-33.3); Mean Corpuscular Volume 102.5 fL (83.0-100.0); Mean Platelet Volume 10.3 fL (9.4-12.4); Platelet Count 194 K/mcL (140-400); Red Blood Count 3.17 M/mcL (4.19-5.50); White Blood Count 6.6 K/mcL (4.3-11.1)
[2020-07-21 13:08] LABS: INR 1.9; Prothrombin Time 21.6 Seconds (9.4-12.1)
[2020-07-21 13:41] LABS: Activated Partial Thrombo Time > 360.0 Seconds (26.0-36.0)
[2020-07-21 13:42] LABS: Heparin anti-factor XA UFH 1.43 IU/mL (0.30-0.70)
[2020-07-21] MEDS: Acetaminophen 325 MG TABLET PO PRN (15:12)
[2020-07-21] MEDS ORDERED: Warfarin perPT PO PRN (18:00)
[2020-07-21] MEDS ORDERED: *HR* Warfarin 5 MG TABLET PO ONE (18:00)
[2020-07-21] MEDS ORDERED: Lactulose Oral Soln 20 GM/30 ML UDC PO ONE (19:41)
[2020-07-21] MEDS ORDERED: Ipratropium/Albuterol Neb 3 ML IH PRN (19:48)
[2020-07-21] MEDS: Sennosides/Docusate Sodium TABLET PO SCH (22:09)
[2020-07-22 02:42] LABS: Basophils # 0.1 K/mcL (0.0-0.2); Basophils % 0.7 %; Eosinophils # 0.2 K/mcL (0.0-0.6); Eosinophils % 2.2 %; Hematocrit 30.7 % (37.5-50.1); Hemoglobin 9.4 g/dL (12.9-16.9); Immature Granulocytes % 0.4 % (0-4); Lymphocytes # 0.6 K/mcL (0.6-4.6); Mean Corpuscular HGB Conc 30.6 g/dL (31.6-35.5); Mean Corpuscular Hemoglobin 30.5 pg (28.0-33.3); Mean Corpuscular Volume 99.7 fL (83.0-100.0); Mean Platelet Volume 10.2 fL (9.4-12.4); Monocytes # 0.8 K/mcL (0.0-1.3); Neutrophils # 6.3 K/mcL (1.6-8.9); Platelet Count 186 K/mcL (140-400); Red Blood Count 3.08 M/mcL (4.19-5.50); Red Cell Distribution Width 16.1 % (11.5-14.5); Segmented Neutrophils % 78.7 %
[2020-07-22 02:50] LABS: INR 1.5; Prothrombin Time 17.1 Seconds (9.4-12.1)
[2020-07-22 03:02] LABS: Magnesium 2.6 mg/dL (1.6-2.6); Phosphorous 5.3 mg/dL (2.7-4.5); Potassium 4.2 mEq/L (3.5-5.1)
[2020-07-22 03:06] LABS: Albumin 3.7 g/dL (3.5-5.7); Albumin/Globulin Ratio 1.1 (1.1-2.2); Bilirubin,Direct 0.2 mg/dL (0.0-0.2); Bilirubin,Indirect 0.4 mg/dL (0.0-1.0); Bilirubin,Total 0.6 mg/dL (0.3-1.0); Globulin 3.4 g/dL (2.4-3.5); Total Protein 7.1 g/dL (6.4-8.9); Uric Acid 6.1 mg/dL (2.3-7.6)
[2020-07-22 03:16] LABS: Thyroid Stimulating Hormone 5.108 mcIU/mL (0.340-5.600)
[2020-07-22 07:11] LABS: Hepatitis B Surface Antigen Nonreactive (Nonreactive)
[2020-07-22 07:16] LABS: Vitamin B12 894 pg/mL (250-1100)
[2020-07-22 07:40] LABS: Hepatitis C Virus Antibody Nonreactive (Nonreactive)
[2020-07-22 07:41] LABS: Hepatitis A Antibody IgM Nonreactive (Nonreactive)
[2020-07-22] MEDS: Tiotropium 10 INH DOSE IH SCH (07:43)
[2020-07-22 07:45] LABS: Hepatitis B Core IgM Nonreactive (Nonreactive)
[2020-07-22] MEDS: risperiDONE 1 MG TABLET PO SCH (08:43)
[2020-07-22] MEDS: Carbidopa/Levodopa 25/100 TABLET PO SCH (08:43)
[2020-07-22] MEDS: Sennosides/Docusate Sodium TABLET PO SCH ×2 (08:43→21:52)
[2020-07-22] MEDS: amLODIPine 5 MG TABLET PO SCH (08:44)
[2020-07-22] MEDS: allopurinoL 100 MG TABLET PO SCH (08:44)
[2020-07-22] MEDS: Heparin 25,000UNIT/250ML 1/2NS 25,000 UNIT/250 ML IV.SOLN IVC SCH (12:04)
[2020-07-22] MEDS: Ergocalciferol (VIT D2) 50,000 UNIT (1.25MG) CAP PO SCH (13:09)
[2020-07-22 14:03] LABS: Vitamin D 25 Hydroxy 44 ng/mL (30-80)
[2020-07-22] MEDS: lamoTRIgine 100 MG TABLET PO SCH (17:28)
[2020-07-22] MEDS ORDERED: *HR* Warfarin 2.5 MG TABLET PO ONE (18:00)
[2020-07-22] MEDS ORDERED: Warfarin perPT PO PRN (18:00)
[2020-07-22] MEDS: Mirtazapine 15 MG TABLET PO SCH (21:51)
[2020-07-23] MEDS: Acetaminophen 325 MG TABLET PO PRN ×2 (01:22→10:39)
[2020-07-23 06:17] LABS: Basophils % 0.6 %; Eosinophils # 0.2 K/mcL (0.0-0.6); Eosinophils % 2.3 %; Hematocrit 29.7 % (37.5-50.1); Hemoglobin 9.1 g/dL (12.9-16.9); Immature Granulocytes % 0.4 % (0-4); Lymphocytes # 0.5 K/mcL (0.6-4.6); Lymphocytes % 7.2 %; Mean Corpuscular HGB Conc 30.6 g/dL (31.6-35.5); Mean Corpuscular Hemoglobin 30.4 pg (28.0-33.3); Mean Corpuscular Volume 99.3 fL (83.0-100.0); Mean Platelet Volume 10.3 fL (9.4-12.4); Monocytes # 0.8 K/mcL (0.0-1.3); Monocytes % 11.6 %; Neutrophils # 5.5 K/mcL (1.6-8.9); Platelet Count 158 K/mcL (140-400); Red Blood Count 2.99 M/mcL (4.19-5.50); Red Cell Distribution Width 16.1 % (11.5-14.5); Segmented Neutrophils % 77.9 %
[2020-07-23 06:32] LABS: INR 1.3; Prothrombin Time 14.4 Seconds (9.4-12.1)
[2020-07-23 06:38] LABS: Calcium 9.2 mg/dL (8.6-10.3); Potassium 4.5 mEq/L (3.5-5.1)
[2020-07-23] MEDS: Tiotropium 10 INH DOSE IH SCH (08:08)
[2020-07-23 09:20] LABS: VBG HCO3 20 mEq/L (21-27); VBG PCO2 43 mmHg (41-51); VBG PH 7.28 pH Units (7.32-7.42); VBG PO2 97 mmHg (25-50)
[2020-07-23] MEDS: allopurinoL 100 MG TABLET PO SCH (10:40)
[2020-07-23] MEDS: Carbidopa/Levodopa 25/100 TABLET PO SCH (10:40)
[2020-07-23] MEDS: risperiDONE 1 MG TABLET PO SCH (10:40)
[2020-07-23] MEDS: Sennosides/Docusate Sodium TABLET PO SCH (10:40)
[2020-07-23] MEDS: amLODIPine 5 MG TABLET PO SCH (10:40)
[2020-07-23] MEDS: Heparin 25,000UNIT/250ML 1/2NS 25,000 UNIT/250 ML IV.SOLN IVC SCH (13:31)
[2020-07-23] MEDS: Lactulose Oral Soln 20 GM/30 ML UDC PO SCH ×2 (15:53→21:31)
[2020-07-23] MEDS ORDERED: *HR* Warfarin 5 MG TABLET PO ONE (18:00)
[2020-07-23] MEDS: lamoTRIgine 100 MG TABLET PO SCH (18:04)
[2020-07-23] MEDS: Mirtazapine 15 MG TABLET PO SCH (21:31)
[2020-07-24 05:06] LABS: Basophils % 0.5 %; Eosinophils # 0.2 K/mcL (0.0-0.6); Hematocrit 28.5 % (37.5-50.1); Hemoglobin 8.7 g/dL (12.9-16.9); Immature Granulocytes % 0.4 % (0-4); Lymphocytes # 0.5 K/mcL (0.6-4.6); Mean Corpuscular HGB Conc 30.5 g/dL (31.6-35.5); Mean Corpuscular Volume 101.4 fL (83.0-100.0); Mean Platelet Volume 10.4 fL (9.4-12.4); Monocytes # 0.9 K/mcL (0.0-1.3); Platelet Count 147 K/mcL (140-400); Red Blood Count 2.81 M/mcL (4.19-5.50); Red Cell Distribution Width 15.9 % (11.5-14.5); Segmented Neutrophils % 78.1 %; White Blood Count 7.7 K/mcL (4.3-11.1)
[2020-07-24 05:16] LABS: INR 1.2; Prothrombin Time 13.8 Seconds (9.4-12.1)
[2020-07-24 05:25] LABS: Magnesium 2.6 mg/dL (1.6-2.6); Potassium 4.6 mEq/L (3.5-5.1)
[2020-07-24] MEDS ORDERED: 0.9 % Sodium Chloride 1,000 ML PRIME SCH (07:15)
[2020-07-24] MEDS ORDERED: 0.9 % Sodium Chloride 250 ML IVC PRN (07:15)
[2020-07-24] MEDS: Tiotropium 10 INH DOSE IH SCH (07:41)
[2020-07-24] MEDS: Carbidopa/Levodopa 25/100 TABLET PO SCH (10:02)
[2020-07-24] MEDS: Lactulose Oral Soln 20 GM/30 ML UDC PO SCH ×3 (10:02→21:58)
[2020-07-24] MEDS: allopurinoL 100 MG TABLET PO SCH (10:02)
[2020-07-24] MEDS: risperiDONE 1 MG TABLET PO SCH (10:02)
[2020-07-24] MEDS: amLODIPine 5 MG TABLET PO SCH (10:02)
[2020-07-24] MEDS ORDERED: Heparin 1,000 UNITS/500 mL 500 ML ONE (14:46)
[2020-07-24] MEDS ORDERED: 0.9 % Sodium Chloride 1,000 ML ONE (14:56)
[2020-07-24] MEDS ORDERED: *HR* Heparin 5,000 UNIT/ML VIAL ONE (15:13)
[2020-07-24] MEDS ORDERED: CeFAZolin 2,000 MG/50 ML BAG IVPB ONE (15:17)
[2020-07-24 17:58] LABS: Hepatitis B Surface Antibody < 3.10 mIU/mL
[2020-07-24] MEDS ORDERED: *HR* Warfarin 5 MG TABLET PO ONE (18:00)
[2020-07-24 18:07] LABS: Hepatitis B Surface Antigen Nonreactive (Nonreactive)
[2020-07-24] MEDS: Heparin 25,000UNIT/250ML 1/2NS 25,000 UNIT/250 ML IV.SOLN IVC SCH ×2 (18:47→22:36)
[2020-07-24] MEDS: lamoTRIgine 100 MG TABLET PO SCH (19:15)
[2020-07-24] MEDS: Mirtazapine 15 MG TABLET PO SCH (21:58)
[2020-07-25 01:12] LABS: Basophils % 0.3 %; Eosinophils # 0.1 K/mcL (0.0-0.6); Eosinophils % 2.1 %; Hematocrit 27.6 % (37.5-50.1); Hemoglobin 8.6 g/dL (12.9-16.9); Immature Granulocytes % 0.5 % (0-4); Lymphocytes # 0.4 K/mcL (0.6-4.6); Lymphocytes % 6.5 %; Mean Corpuscular HGB Conc 31.2 g/dL (31.6-35.5); Mean Corpuscular Hemoglobin 30.9 pg (28.0-33.3); Mean Corpuscular Volume 99.3 fL (83.0-100.0); Mean Platelet Volume 10.5 fL (9.4-12.4); Monocytes # 0.7 K/mcL (0.0-1.3); Monocytes % 11.5 %; Neutrophils # 4.9 K/mcL (1.6-8.9); Platelet Count 133 K/mcL (140-400); Red Blood Count 2.78 M/mcL (4.19-5.50); Red Cell Distribution Width 15.8 % (11.5-14.5); Segmented Neutrophils % 79.1 %; White Blood Count 6.2 K/mcL (4.3-11.1)
[2020-07-25 01:23] LABS: INR 1.4; Prothrombin Time 16.3 Seconds (9.4-12.1)
[2020-07-25 02:07] LABS: Potassium 3.9 mEq/L (3.5-5.1)
[2020-07-25] MEDS: *HR* Heparin 5,000 UNIT/ML VIAL IVP PRN ×2 (03:06→16:30)
[2020-07-25] MEDS ORDERED: 0.9 % Sodium Chloride 250 ML IVC PRN (07:04)
[2020-07-25] MEDS: Tiotropium 10 INH DOSE IH SCH (07:41)
[2020-07-25] MEDS: Acetaminophen 325 MG TABLET PO PRN ×2 (08:58→17:33)
[2020-07-25] MEDS ORDERED: *HR* Heparin 10,000 UNIT/10 ML VIAL IV PRN (10:41)
[2020-07-25] MEDS: risperiDONE 1 MG TABLET PO SCH (13:10)
[2020-07-25] MEDS: Lactulose Oral Soln 20 GM/30 ML UDC PO SCH ×3 (13:10→20:38)
[2020-07-25] MEDS: allopurinoL 100 MG TABLET PO SCH (13:10)
[2020-07-25] MEDS: Carbidopa/Levodopa 25/100 TABLET PO SCH (13:11)
[2020-07-25] MEDS: amLODIPine 5 MG TABLET PO SCH (13:11)
[2020-07-25] MEDS: lamoTRIgine 100 MG TABLET PO SCH (17:26)
[2020-07-25] MEDS ORDERED: *HR* Warfarin 5 MG TABLET PO ONE (18:00)
[2020-07-25] MEDS: Heparin 25,000UNIT/250ML 1/2NS 25,000 UNIT/250 ML IV.SOLN IVC SCH (20:31)
[2020-07-25] MEDS: Mirtazapine 15 MG TABLET PO SCH (20:37)
[2020-07-25] MEDS ORDERED: *HR* HYDROcodone/Acet 5/325 mg TABLET PO ONE (22:03)
[2020-07-26 05:09] LABS: Basophils % 0.5 %; Eosinophils # 0.2 K/mcL (0.0-0.6); Eosinophils % 3.4 %; Hemoglobin 8.9 g/dL (12.9-16.9); Immature Granulocytes % 0.5 % (0-4); Lymphocytes # 0.7 K/mcL (0.6-4.6); Lymphocytes % 10.5 %; Mean Corpuscular HGB Conc 30.7 g/dL (31.6-35.5); Mean Corpuscular Hemoglobin 31.2 pg (28.0-33.3); Mean Corpuscular Volume 101.8 fL (83.0-100.0); Mean Platelet Volume 11.1 fL (9.4-12.4); Monocytes # 0.8 K/mcL (0.0-1.3); Monocytes % 13.6 %; Neutrophils # 4.4 K/mcL (1.6-8.9); Platelet Count 136 K/mcL (140-400); Red Blood Count 2.85 M/mcL (4.19-5.50); Red Cell Distribution Width 16.5 % (11.5-14.5); Segmented Neutrophils % 71.5 %; White Blood Count 6.2 K/mcL (4.3-11.1)
[2020-07-26 05:24] LABS: Heparin anti-factor XA UFH 0.77 IU/mL (0.30-0.70); INR 1.9; Prothrombin Time 21.8 Seconds (9.4-12.1)
[2020-07-26 05:29] LABS: Calcium 9.1 mg/dL (8.6-10.3); Potassium 3.6 mEq/L (3.5-5.1)
[2020-07-26] MEDS ORDERED: 0.9 % Sodium Chloride 250 ML IVC PRN (07:12)
[2020-07-26] MEDS: Tiotropium 10 INH DOSE IH SCH (07:59)
[2020-07-26] MEDS: risperiDONE 1 MG TABLET PO SCH (08:31)
[2020-07-26] MEDS: Carbidopa/Levodopa 25/100 TABLET PO SCH (08:31)
[2020-07-26] MEDS: Acetaminophen 325 MG TABLET PO PRN ×2 (08:31→22:58)
[2020-07-26] MEDS: Lactulose Oral Soln 20 GM/30 ML UDC PO SCH ×3 (08:32→20:03)
[2020-07-26] MEDS: amLODIPine 5 MG TABLET PO SCH (08:34)
[2020-07-26] MEDS: allopurinoL 100 MG TABLET PO SCH (08:35)
[2020-07-26] MEDS: Heparin 25,000UNIT/250ML 1/2NS 25,000 UNIT/250 ML IV.SOLN IVC SCH (12:36)
[2020-07-26 17:39] LABS: Alpha 2 Globulin (PEP) 0.73 g/dL (0.48-1.05); Beta Globulin (PEP) 0.83 g/dL (0.48-1.10)
[2020-07-26] MEDS ORDERED: *HR* Warfarin 2.5 MG TABLET PO ONE (18:00)
[2020-07-26] MEDS: lamoTRIgine 100 MG TABLET PO SCH (18:14)
[2020-07-26] MEDS: Mirtazapine 15 MG TABLET PO SCH (20:03)
[2020-07-27 01:19] LABS: Basophils % 0.6 %; Eosinophils # 0.2 K/mcL (0.0-0.6); Eosinophils % 3.3 %; Hematocrit 28.7 % (37.5-50.1); Hemoglobin 8.7 g/dL (12.9-16.9); Immature Granulocytes % 0.3 % (0-4); Lymphocytes # 0.6 K/mcL (0.6-4.6); Mean Corpuscular HGB Conc 30.3 g/dL (31.6-35.5); Mean Corpuscular Hemoglobin 30.6 pg (28.0-33.3); Mean Corpuscular Volume 101.1 fL (83.0-100.0); Mean Platelet Volume 10.8 fL (9.4-12.4); Monocytes # 0.9 K/mcL (0.0-1.3); Monocytes % 13.9 %; Neutrophils # 4.6 K/mcL (1.6-8.9); Nucleated Red Blood Cells 0.3 /100 WBC (0); Platelet Count 122 K/mcL (140-400); Red Blood Count 2.84 M/mcL (4.19-5.50); Red Cell Distribution Width 16.2 % (11.5-14.5); Segmented Neutrophils % 71.9 %; White Blood Count 6.3 K/mcL (4.3-11.1)
[2020-07-27 01:28] LABS: INR 1.8; Prothrombin Time 20.2 Seconds (9.4-12.1)
[2020-07-27 01:43] LABS: Calcium 9.2 mg/dL (8.6-10.3); Potassium 3.9 mEq/L (3.5-5.1)
[2020-07-27] MEDS: Acetaminophen 325 MG TABLET PO PRN ×2 (03:12→21:02)
[2020-07-27 07:11] LABS: IFE Reflexed NOT DONE
[2020-07-27] MEDS: Tiotropium 10 INH DOSE IH SCH (07:50)
[2020-07-27] MEDS: allopurinoL 100 MG TABLET PO SCH (08:49)
[2020-07-27] MEDS: amLODIPine 5 MG TABLET PO SCH (08:49)
[2020-07-27] MEDS: Carbidopa/Levodopa 25/100 TABLET PO SCH (08:50)
[2020-07-27] MEDS: Lactulose Oral Soln 20 GM/30 ML UDC PO SCH ×3 (08:50→20:30)
[2020-07-27] MEDS: risperiDONE 1 MG TABLET PO SCH (08:50)
[2020-07-27] MEDS: Heparin 25,000UNIT/250ML 1/2NS 25,000 UNIT/250 ML IV.SOLN IVC SCH (11:09)
[2020-07-27] MEDS: hydrOXYzine pamoate 25 MG CAPSULE PO PRN (16:08)
[2020-07-27] MEDS: lamoTRIgine 100 MG TABLET PO SCH (17:29)
[2020-07-27] MEDS ORDERED: *HR* Warfarin 5 MG TABLET PO ONE (18:00)
[2020-07-27 19:22] LABS: Urine Collection Volume RANDOM mL
[2020-07-27] MEDS: Mirtazapine 15 MG TABLET PO SCH (20:30)
[2020-07-27] MEDS: Furosemide 40 MG/4 ML VIAL IVP SCH (20:37)
[2020-07-28] MEDS: hydrOXYzine pamoate 25 MG CAPSULE PO PRN ×2 (00:06→10:29)
[2020-07-28] MEDS ORDERED: 0.9 % Sodium Chloride 250 ML IVC PRN (07:13)
[2020-07-28] MEDS: Tiotropium 10 INH DOSE IH SCH (07:44)
[2020-07-28 08:05] LABS: Heparin anti-factor XA UFH 0.4 IU/mL (0.30-0.70)
[2020-07-28 08:06] LABS: INR 1.2; Prothrombin Time 14.1 Seconds (9.4-12.1)
[2020-07-28 08:18] LABS: Calcium 9.6 mg/dL (8.6-10.3); Potassium 3.8 mEq/L (3.5-5.1)
[2020-07-28 08:22] LABS: Basophils % 0.7 %; Eosinophils # 0.2 K/mcL (0.0-0.6); Eosinophils % 3.5 %; Hematocrit 31.5 % (37.5-50.1); Hemoglobin 9.6 g/dL (12.9-16.9); Immature Granulocytes % 0.5 % (0-4); Lymphocytes # 0.7 K/mcL (0.6-4.6); Lymphocytes % 11.7 %; Mean Corpuscular HGB Conc 30.5 g/dL (31.6-35.5); Mean Corpuscular Hemoglobin 31.4 pg (28.0-33.3); Mean Corpuscular Volume 102.9 fL (83.0-100.0); Mean Platelet Volume 11.2 fL (9.4-12.4); Monocytes # 0.8 K/mcL (0.0-1.3); Monocytes % 13.7 %; Neutrophils # 4.2 K/mcL (1.6-8.9); Platelet Count 130 K/mcL (140-400); Red Blood Count 3.06 M/mcL (4.19-5.50); Red Cell Distribution Width 16.4 % (11.5-14.5); Segmented Neutrophils % 69.9 %; White Blood Count 6.1 K/mcL (4.3-11.1)
[2020-07-28] MEDS: Heparin 25,000UNIT/250ML 1/2NS 25,000 UNIT/250 ML IV.SOLN IVC SCH (09:26)
[2020-07-28] MEDS: Furosemide 40 MG/4 ML VIAL IVP SCH ×2 (13:26→18:17)
[2020-07-28] MEDS: Lactulose Oral Soln 20 GM/30 ML UDC PO SCH ×3 (13:26→22:03)
[2020-07-28] MEDS: Carbidopa/Levodopa 25/100 TABLET PO SCH (13:26)
[2020-07-28] MEDS: amLODIPine 5 MG TABLET PO SCH (13:28)
[2020-07-28] MEDS: allopurinoL 100 MG TABLET PO SCH (13:29)
[2020-07-28] MEDS: risperiDONE 1 MG TABLET PO SCH (13:29)
[2020-07-28] MEDS ORDERED: *HR* Warfarin 7.5 MG TABLET PO ONE (18:00)
[2020-07-28] MEDS: Acetaminophen 325 MG TABLET PO PRN (18:10)
[2020-07-28] MEDS: lamoTRIgine 100 MG TABLET PO SCH (18:11)
[2020-07-28] MEDS: Mirtazapine 15 MG TABLET PO SCH (22:01)
[2020-07-29] MEDS: Heparin 25,000UNIT/250ML 1/2NS 25,000 UNIT/250 ML IV.SOLN IVC SCH (06:33)
[2020-07-29] MEDS: Tiotropium 10 INH DOSE IH SCH (07:17)
[2020-07-29] MEDS: Lactulose Oral Soln 20 GM/30 ML UDC PO SCH ×3 (08:06→21:33)
[2020-07-29] MEDS: Carbidopa/Levodopa 25/100 TABLET PO SCH (08:07)
[2020-07-29] MEDS: allopurinoL 100 MG TABLET PO SCH (08:07)
[2020-07-29] MEDS: risperiDONE 1 MG TABLET PO SCH (08:07)
[2020-07-29] MEDS: amLODIPine 5 MG TABLET PO SCH (08:07)
[2020-07-29] MEDS: Furosemide 40 MG/4 ML VIAL IVP SCH ×2 (08:08→18:27)
[2020-07-29 10:49] LABS: Hematocrit 27.6 % (37.5-50.1); Hemoglobin 8.6 g/dL (12.9-16.9); Immature Platelets 5.3 % (1.1-6.1); Mean Corpuscular HGB Conc 31.2 g/dL (31.6-35.5); Mean Corpuscular Volume 99.6 fL (83.0-100.0); Mean Platelet Volume 11.2 fL (9.4-12.4); Red Blood Count 2.77 M/mcL (4.19-5.50); Red Cell Distribution Width 16.1 % (11.5-14.5)
[2020-07-29 10:55] LABS: INR 1.5; Prothrombin Time 17.2 Seconds (9.4-12.1)
[2020-07-29 11:14] LABS: Calcium 9.2 mg/dL (8.6-10.3); Potassium 3.4 mEq/L (3.5-5.1)
[2020-07-29] MEDS: Ergocalciferol (VIT D2) 50,000 UNIT (1.25MG) CAP PO SCH (11:33)
[2020-07-29] MEDS ORDERED: *HR* Warfarin 7.5 MG TABLET PO ONE (18:00)
[2020-07-29] MEDS: lamoTRIgine 100 MG TABLET PO SCH (18:22)
[2020-07-29] MEDS: Mirtazapine 15 MG TABLET PO SCH (21:32)
[2020-07-30 05:01] LABS: Mean Corpuscular HGB Conc 30.8 g/dL (31.6-35.5); Mean Corpuscular Hemoglobin 31.1 pg (28.0-33.3); Mean Corpuscular Volume 101.2 fL (83.0-100.0); Mean Platelet Volume 11.2 fL (9.4-12.4); Platelet Count 170 K/mcL (140-400); Red Blood Count 2.57 M/mcL (4.19-5.50); Red Cell Distribution Width 16.8 % (11.5-14.5); White Blood Count 9.4 K/mcL (4.3-11.1)
[2020-07-30 05:11] LABS: INR 1.7; Prothrombin Time 19.7 Seconds (9.4-12.1)
[2020-07-30] MEDS: Heparin 25,000UNIT/250ML 1/2NS 25,000 UNIT/250 ML IV.SOLN IVC SCH (05:28)
[2020-07-30 06:27] LABS: Calcium 9.1 mg/dL (8.6-10.3); Potassium 3.8 mEq/L (3.5-5.1)
[2020-07-30] MEDS ORDERED: Iron Sucrose Complex 400 MG in 0.9 % Sodium Chloride 250 ML IVPB ONE (07:41)
[2020-07-30] MEDS: Tiotropium 10 INH DOSE IH SCH (08:24)
[2020-07-30] MEDS: Carbidopa/Levodopa 25/100 TABLET PO SCH (09:59)
[2020-07-30] MEDS: Lactulose Oral Soln 20 GM/30 ML UDC PO SCH ×3 (09:59→20:16)
[2020-07-30] MEDS: allopurinoL 100 MG TABLET PO SCH (09:59)
[2020-07-30] MEDS: Furosemide 40 MG/4 ML VIAL IVP SCH ×2 (09:59→17:37)
[2020-07-30] MEDS: risperiDONE 1 MG TABLET PO SCH (10:00)
[2020-07-30] MEDS: amLODIPine 5 MG TABLET PO SCH (10:00)
[2020-07-30] MEDS ORDERED: Ferumoxytol 510 MG in 0.9 % Sodium Chloride 100 ML IVPB ONE (10:10)
[2020-07-30 11:12] LABS: Hematocrit 24.1 % (37.5-50.1); Hemoglobin 7.3 g/dL (12.9-16.9)
[2020-07-30] MEDS ORDERED: *HR* Phytonadione 10 MG/ML AMPUL SQ ONE (11:15)
[2020-07-30] MEDS ORDERED: Isovue-370 500 ML BOTTLE IVP ONE (12:51)
[2020-07-30] MEDS ORDERED: Perflutren Lipid Microsphere 1.3 ML in 0.9 % Sodium Chloride 8.7 ML IVP PRN (13:50)
[2020-07-30] MEDS ORDERED: 0.9 % Sodium Chloride 250 ML ONE ×3 (14:21→22:59)
[2020-07-30] MEDS: lamoTRIgine 100 MG TABLET PO SCH (17:37)
[2020-07-30] MEDS ORDERED: *HR* Warfarin 7.5 MG TABLET PO ONE (18:00)
[2020-07-30] MEDS: Mirtazapine 15 MG TABLET PO SCH (20:17)
[2020-07-30 21:21] LABS: Hematocrit 24.5 % (37.5-50.1); Hemoglobin 7.7 g/dL (12.9-16.9)
[2020-07-30 21:28] LABS: INR 1.9; Prothrombin Time 21.7 Seconds (9.4-12.1)
[2020-07-30] MEDS ORDERED: 0.9 % Sodium Chloride 250 ML IVC SCH (22:30)
[2020-07-31] MEDS: hydrOXYzine pamoate 25 MG CAPSULE PO PRN (00:24)
[2020-07-31 01:13] LABS: Hematocrit 26.1 % (37.5-50.1); Hemoglobin 8.3 g/dL (12.9-16.9)
[2020-07-31 04:44] LABS: INR 1.7; Prothrombin Time 19.6 Seconds (9.4-12.1)
[2020-07-31 04:45] LABS: Hematocrit 24.6 % (37.5-50.1); Hemoglobin 7.7 g/dL (12.9-16.9); Mean Corpuscular HGB Conc 31.3 g/dL (31.6-35.5); Mean Corpuscular Hemoglobin 30.6 pg (28.0-33.3); Mean Corpuscular Volume 97.6 fL (83.0-100.0); Mean Platelet Volume 11.2 fL (9.4-12.4); Platelet Count 170 K/mcL (140-400); Red Blood Count 2.52 M/mcL (4.19-5.50); Red Cell Distribution Width 16.8 % (11.5-14.5); White Blood Count 12.1 K/mcL (4.3-11.1)
[2020-07-31 05:02] LABS: Calcium 9.2 mg/dL (8.6-10.3); Potassium 4.1 mEq/L (3.5-5.1)
[2020-07-31] MEDS ORDERED: 0.9 % Sodium Chloride 2,000 ML ONE (06:28)
[2020-07-31 07:30] LABS: Hematocrit 24.6 % (37.5-50.1); Hemoglobin 7.9 g/dL (12.9-16.9)
[2020-07-31] MEDS ORDERED: *HR* Heparin 10,000 UNIT/10 ML VIAL IV PRN (07:52)
[2020-07-31] MEDS ORDERED: 0.9 % Sodium Chloride 250 ML IVC PRN (07:52)
[2020-07-31] MEDS: Tiotropium 10 INH DOSE IH SCH (07:57)
[2020-07-31] MEDS ORDERED: 0.9 % Sodium Chloride 1,000 ML PRIME SCH (08:00)
[2020-07-31] MEDS ORDERED: *HR* Phytonadione 10 MG/ML AMPUL SQ ONE (08:52)
[2020-07-31] MEDS: Carbidopa/Levodopa 25/100 TABLET PO SCH (10:03)
[2020-07-31] MEDS: Furosemide 40 MG/4 ML VIAL IVP SCH ×2 (10:03→17:00)
[2020-07-31] MEDS: Lactulose Oral Soln 20 GM/30 ML UDC PO SCH ×3 (10:03→20:37)
[2020-07-31] MEDS: allopurinoL 100 MG TABLET PO SCH (10:04)
[2020-07-31] MEDS: risperiDONE 1 MG TABLET PO SCH (10:04)
[2020-07-31 15:13] LABS: Hematocrit 29.9 % (37.5-50.1)
[2020-07-31 15:19] LABS: Hemoglobin 9.6 g/dL (12.9-16.9)
[2020-07-31] MEDS: Iron Sucrose Complex 250 MG in 0.9 % Sodium Chloride 250 ML IVPB SCH (16:59)
[2020-07-31] MEDS: lamoTRIgine 100 MG TABLET PO SCH (17:00)
[2020-07-31] MEDS: Mirtazapine 15 MG TABLET PO SCH (20:37)
[2020-07-31 22:06] LABS: Hematocrit 27.1 % (37.5-50.1); Hemoglobin 8.8 g/dL (12.9-16.9)
[2020-08-01 05:09] LABS: Basophils # 0.1 K/mcL (0.0-0.2); Basophils % 0.4 %; Eosinophils # 0.3 K/mcL (0.0-0.6); Eosinophils % 2.4 %; Hematocrit 28.7 % (37.5-50.1); Immature Granulocytes % 0.6 % (0-4); Lymphocytes # 0.8 K/mcL (0.6-4.6); Lymphocytes % 6.8 %; Mean Corpuscular HGB Conc 31.4 g/dL (31.6-35.5); Mean Corpuscular Hemoglobin 30.8 pg (28.0-33.3); Mean Corpuscular Volume 98.3 fL (83.0-100.0); Mean Platelet Volume 11.4 fL (9.4-12.4); Monocytes % 17.5 %; Neutrophils # 8.1 K/mcL (1.6-8.9); Nucleated Red Blood Cells 0.4 /100 WBC (0); Platelet Count 162 K/mcL (140-400); Red Blood Count 2.92 M/mcL (4.19-5.50); Red Cell Distribution Width 16.9 % (11.5-14.5); Segmented Neutrophils % 72.3 %; White Blood Count 11.2 K/mcL (4.3-11.1)
[2020-08-01 05:15] LABS: INR 1.2; Prothrombin Time 13.8 Seconds (9.4-12.1)
[2020-08-01 05:30] LABS: Albumin 3.6 g/dL (3.5-5.7); Albumin/Globulin Ratio 1.2 (1.1-2.2); Globulin 2.9 g/dL (2.4-3.5); Potassium 4.3 mEq/L (3.5-5.1); Total Protein 6.5 g/dL (6.4-8.9)
[2020-08-01] MEDS: Tiotropium 10 INH DOSE IH SCH (08:02)
[2020-08-01] MEDS: Lactulose Oral Soln 20 GM/30 ML UDC PO SCH ×2 (08:20→16:30)
[2020-08-01] MEDS: Furosemide 40 MG/4 ML VIAL IVP SCH ×2 (08:20→16:30)
[2020-08-01] MEDS: Carbidopa/Levodopa 25/100 TABLET PO SCH (08:21)
[2020-08-01] MEDS: risperiDONE 1 MG TABLET PO SCH (08:22)
[2020-08-01] MEDS: allopurinoL 100 MG TABLET PO SCH (08:22)
[2020-08-01] MEDS: Iron Sucrose Complex 250 MG in 0.9 % Sodium Chloride 250 ML IVPB SCH (09:41)
[2020-08-01 16:26] VITALS: BP 114/64
[2020-08-01] MEDS: lamoTRIgine 100 MG TABLET PO SCH (17:54)
== END 2020-08-01 19:24 | disposition short-term general hospital (02) | DRG 673 ==
LOC: 3ANU → SUATTDRO 19:22 → 2NNU 07-30 12:48
PROVIDERS: ADMIT Internal Medicine; ATTEND Internal Medicine
PROC: IRPERMA (2020-07-24 12:00)